=== PATIENT | female | born 1970 | race African-American/Black ===

== ENCOUNTER 2019-06-18 08:43 | Outpatient (CLI) | payer OTHER, SELFPAY ==
--- NOTE | ~2019-06-18 | MM_ITS ---
EXAMINATION: MM screening [facility] BI w mara HISTORY: Screening mammogram TECHNIQUE: Craniocaudal and mediolateral oblique 3-D tomosynthesis images were obtained and synthetic 2-D images were generated. CAD analysis was submitted and interpreted. COMPARISON: Comparison to multiple prior studies sequentially, with oldest reviewed study dated 09/23. BREAST PARENCHYMAL COMPOSITION: There are scattered areas of fibroglandular density. FINDINGS: There is no evidence of suspicious mass, calcification, or architectural distortion to sugg est malignancy in either breast. There has been no suspicious interval change. IMPRESSION: 1. No mammographic evidence of malignancy. 2. Recommend routine screening mammography in one year. BI-RADS Category 1: Negative Reviewed, dictated and finalized at location A.
== END 2019-06-18 08:44 | disposition home or self-care (01) ==
LOC: ANHIMG 08:45
PROVIDERS: PCP Emergency Medicine; Visit Provider Nurse Practitioner Obstetrics & Gynecology
DX: Z12.31 Encounter for screening mammogram for malignant neoplasm of breast (principal)
CPT/HCPCS: 77063; 77067

== ENCOUNTER 2020-06-20 07:51 | Outpatient (CLI) | payer OTHER, SELFPAY ==
--- NOTE | ~2020-06-20 | MM_ITS ---
EXAMINATION: MM screening [facility] BI w mara HISTORY: Screening mammogram TECHNIQUE: Craniocaudal and mediolateral oblique 3-D tomosynthesis images were obtained and synthetic 2-D images were generated. CAD analysis was submitted and interpreted. COMPARISON: 06/18/2019, 05/13/2018 04/22/2017 BREAST PARENCHYMAL COMPOSITION: There are scattered areas of fibroglandular density. FINDINGS: There is no evidence of suspicious mass, calcification, or architectural distortion to sugg est malignancy in either breast. There has been no suspicious interval change. IMPRESSION: 1. No mammographic evidence of malignancy. 2. Recommend routine screening mammography in one year. BI-RADS Category 1: Negative Reviewed, dictated and finalized at location A.
== END 2020-06-20 07:52 | disposition home or self-care (01) ==
LOC: ANHIMG 07:54
PROVIDERS: PCP Emergency Medicine; Visit Provider Nurse Practitioner Obstetrics & Gynecology
DX: Z12.31 Encounter for screening mammogram for malignant neoplasm of breast (principal)
CPT/HCPCS: 77063; 77067

== ENCOUNTER 2020-12-15 19:16 | Emergency (ER) | payer OTHER, SELFPAY ==
--- NOTE | ~2020-12-15 | XR_ITS ---
XR shoulder LT min 2V DATE: 12/15/2020 19:41 INDICATION: Fell onto left shoulder one week ago. Can't lift arm. TECHNIQUE: 4 views COMPARISON: None FINDINGS: No fracture or dislocation, periosteal reaction or bone destruction or abnormal soft tissue calcification. There is some superior subluxation of the humeral head which may be due to rotator cu ff tear or atrophy. IMPRESSION: Suspected rotator cuff tear or atrophy. No significant abnormality otherwise Reviewed, dictated and finalized at location A.
[2020-12-15 19:24] VITALS: BP 119/82; PULSE 78; RESP 16; TEMP 36.6; O2SAT 100
--- NOTE | 2020-12-15 20:22 | ED.UPPEXIN ---
HPI - Extremity Injury (Upper) General Chief Complaint: Extremity Injury, Upper Stated Complaint: Left Arm Pain Time Seen by Provider: 12/15/20 19:27 Source: patient and RN notes reviewed Mode of arrival: ambulatory Limitations: no limitations History of Present Illness HPI narrative: Patient presents today complaining of left shoulder injury. She fell 2 weeks ago in the shower with her elbow bent, striking her elbow and upper arm on the edge of the bathtub. She does report some weakness in the left arm with significant decreased range of motion. Denies numbness or tingling in the arm or hand. She is pain-free at rest, which increases significantly to 10/10 with movement. She has been occasionally taking Tylenol with mild relief. Related Data Home Medications Medication Instructions Recorded Confirmed ergocalciferol (vitamin D2) 50 mcg 2,000 unit PO DAILY 01/07/19 12/15/20 (2,000 unit) tablet montelukast 10 mg PO DAILY 12/15/20 12/15/20 Allergies Allergy/AdvReac Type Severity Reaction Status Date / Time peanut Allergy Mild Cough Verified 12/15/20 20:14 SEASONAL ALLERGENS AdvReac Mild Sneezing Uncoded 12/15/20 20:14 Review of Systems Review of Systems: CONSTITUTIONAL: Denies body aches, fever, chills, or sweats. EYES: Denies visual changes, redness, or discharge. ENT: Denies rhinorrhea, congestion, sore throat, or otalgia. CARDIOVASCULAR: Denies chest pain, palpitations, or edema. RESPIRATORY: Denies cough or dyspnea. GASTROINTESTINAL: Denies abdominal pain, nausea, vomiting, or diarrhea. GENITOURINARY: Denies dysuria or hematuria. SKIN: Denies rash, itching, or wounds. MUSCULOSKELETAL: Denies back pain, or myalgia. + Left shoulder injury NEUROLOGIC: Denies headache, numbness, tingling, PSYCH: Denies depression or anxiety. [facility] Surgical History Surgical History H/O tubal ligation 1995 Family History Family History Father Family history of malignant neoplasm, Onset Age: 63 Patient's father is Social History Social History Smoking status: Never smoker Alcohol intake: never Comments At time of signature, I have reviewed and agree with nursing past medical, surgical, social and family history unless otherwise noted. Please see nursing chart for further information. There is no relevant family history pertinent to the presenting complaint Exam Narrative: GENERAL: Well-appearing, well-nourished, and in no acute distress. HEAD: Normocephalic, atraumatic. EYES: EOMI. No redness or drainage. Conjunctivae normal. ENT: Mucous membranes pink and moist. NECK: Normal AROM. CHEST: No respiratory distress. EXTREMITIES: Left shoulder: Patient has 20 degree range of motion anteriorly and laterally. No internal or external rotation. Distal sensation intact. Capillary refill normal. Radial pulse normal. Scant tenderness anteriorly and laterally. SKIN: Warm, dry, no rash. Capillary refill normal. Normal skin turgor. NEURO: No focal deficits. Alert and oriented x3. Gait steady. PSYCH: Normal affect. No signs of depression or anxiety. Course Vital Signs Vital signs: Vital Signs Temperature 97.8 F 12/15/20 19:24 Pulse Rate 78 12/15/20 19:24 Respiratory Rate 16 12/15/20 19:24 Blood Pressure 119/82 12/15/20 19:24 Pulse Oximetry 100 12/15/20 19:24 Temperature 97.8 F 12/15/20 19:24 Pulse Rate 78 12/15/20 19:24 Respiratory Rate 16 12/15/20 19:24 Blood Pressure 119/82 12/15/20 19:24 Pulse Oximetry 100 12/15/20 19:24 Reviewed. Pt has been instructed to follow up with her PCP regarding her elevated blood pressure today. MDM - Extremity Injury (Upper) Differential Diagnosis Differential diagnosis: Likely other (Humerus fracture, rotator cuff tear, shoulder strain) Imag
== END 2020-12-15 20:31 | disposition home or self-care (01) ==
PROVIDERS: Emergency Provider Nurse Practitioner; PCP Emergency Medicine
DX: S49.92XA Unspecified injury of left shoulder and upper arm, initial encounter (principal); W18.2XXA Fall in (into) shower or empty bathtub, initial encounter
CPT/HCPCS: 73030; 99213; A4565; G0463

== ENCOUNTER 2021-06-23 07:52 | Outpatient (CLI) | payer OTHER, SELFPAY ==
--- NOTE | ~2021-06-23 | MM_ITS ---
EXAMINATION: MM screening [facility] w mara HISTORY: Screening TECHNIQUE: Craniocaudal and mediolateral oblique 3-D tomosynthesis images were obtained and synthetic 2-D images were generated. CAD analysis was submitted and interpreted. COMPARISON: Comparison to multiple prior studies sequentially, with oldest reviewed study dated 06/23. BREAST PARENCHYMAL COMPOSITION: There are scattered areas of fibroglandular density. FINDINGS: There is no evidence of suspicious mass, calcification, or architectural distortion to sugg est malignancy in either breast. There has been no suspicious interval change. IMPRESSION: 1. No mammographic evidence of malignancy. 2. Recommend routine screening mammography in one year. BI-RADS Category 1: Negative Reviewed, dictated and finalized at location A.
== END 2021-06-23 07:53 | disposition home or self-care (01) ==
PROVIDERS: PCP Emergency Medicine; Visit Provider Nurse Practitioner Obstetrics & Gynecology
DX: Z12.31 Encounter for screening mammogram for malignant neoplasm of breast (principal)
CPT/HCPCS: 77063; 77067

== ENCOUNTER 2021-06-29 08:37 | Outpatient (CLI) | payer OTHER, SELFPAY ==
--- NOTE | ~2021-06-29 | CT_ITS ---
EXAMINATION: CT sinus wo con DATE: 06/29/2021 08:59 INDICATION: Chronic sinusitis TECHNIQUE: Computed tomography (CT) of the paranasal sinuses was performed without intravenous contra st. The dose-length product was 355.01 mGy-cm. Automated exposure control and iterative reconstructio n technique were employed. COMPARISON: CT dated 12/10/2016 FINDINGS: There is no significant mucosal thickening. No air-fluid levels. Leftward nasal septal nakul ation. Ostiomeatal units are patent. No mucoperiosteal reaction. Mastoids are pneumatized. IMPRESSION: 1. No significant paranasal sinus disease. Reviewed, dictated and finalized at location B.
== END 2021-06-29 08:38 | disposition home or self-care (01) ==
LOC: ANHIMG 08:38
PROVIDERS: PCP Emergency Medicine; Visit Provider Otolaryngology
DX: J32.9 Chronic sinusitis, unspecified (principal)
CPT/HCPCS: 70486

== ENCOUNTER 2021-07-27 16:09 | Outpatient (CLI) | payer OTHER, SELFPAY ==
--- NOTE | ~2021-07-27 | XR_ITS ---
XR chest 2V DATE: 07/27/2021 16:36 INDICATION: Cough, dictated and sputum production TECHNIQUE: PA and lateral views COMPARISON: 09/16/2018 2 view chest FINDINGS: Normal heart size. No hilar or mediastinal enlargement. Calcified azygous nodes, consistent with old pulmonary granulomatous disease. No pulmonary infiltrate or consolidation, pleural effusion or pulmonary vascular congestion or pneumothorax is detected. IMPRESSION: No active cardiopulmonary disease Reviewed, dictated and finalized at location A.
== END 2021-07-27 16:10 | disposition home or self-care (01) ==
PROVIDERS: PCP Emergency Medicine; Visit Provider Emergency Medicine
DX: R05.9 Cough, unspecified (principal)
CPT/HCPCS: 71046

== ENCOUNTER 2021-09-09 07:49 | Outpatient (CLI) | payer OTHER, SELFPAY ==
--- NOTE | ~2021-09-09 | MR_ITS ---
EXAMINATION: MR shoulder LT wo con DATE: 09/09/2021 08:40 INDICATION: Left shoulder pain. TECHNIQUE: Magnetic resonance imaging (MRI) of the left shoulder was performed without intravenous co ntrast. Sequences included axial PD-weighted FS FSE, coronal oblique PD-weighted FS FSE and T2-weight ed FS FSE, and sagittal oblique T2-weighted FS FSE and T1-weighted FSE. COMPARISON: None. FINDINGS: Coracoacromial arch: The acromion undersurface is curved in morphology (type II). There is a preacromial os acromiale. The re is mild acromioclavicular joint osteoarthritis. There is moderate subacromial/subdeltoid bursitis. Rotator cuff: There is a full-thickness tear of supraspinatus tendon measuring 11 mm anterior to posterior by 2.6 c m proximal to distal. There is severe distal infraspinatus tendinopathy. Teres minor tendon is normal . Subscapularis tendon is normal. There is mild fatty atrophy of supraspinatus and infraspinatus musc le bellies. Biceps tendon and glenoid labrum: Biceps tendon is in bicipital groove. There is moderate intra-articular biceps tendinopathy. There is degenerative tearing of posterior glenoid labrum. Fluid: There is a moderate-sized glenohumeral joint effusion. Bones/cartilage: There is partial-thickness cartilage loss of glenoid and humeral head. IMPRESSION: 1. Full-thickness rotator cuff tear. 2. Mild glenohumeral joint chondrosis. 3. Moderate-sized glenohumeral joint effusion and moderate subacromial/subdeltoid bursitis. 4. Moderate intra-articular biceps tendinopathy. 5. Mild acromioclavicular joint osteoarthritis. Reviewed, dictated and finalized at location A. IMPRESSION: 1. Full-thickness rotator cuff tear. 2. Mild glenohumeral joint chondrosis. 3. Moderate-sized glenohumeral joint effusion and moderate subacromial/subdelto id bursitis. 4. Moderate intra-articular biceps tendinopathy. 5. Mild acromioclavicular joint osteoarthritis.
== END 2021-09-09 07:50 | disposition home or self-care (01) ==
PROVIDERS: PCP Emergency Medicine; Visit Provider Nurse Practitioner
DX: M25.512 Pain in left shoulder (principal); M75.122 Complete rotator cuff tear or rupture of left shoulder, not specified as traumatic; M25.412 Effusion, left shoulder; M75.52 Bursitis of left shoulder; M75.22 Bicipital tendinitis, left shoulder; M19.012 Primary osteoarthritis, left shoulder
CPT/HCPCS: 73221

== ENCOUNTER 2021-12-25 19:45 | Emergency (ER) | payer OTHER, SELFPAY ==
[2021-12-25 19:55] VITALS: BP 105/64; PULSE 84; RESP 16; TEMP 36.7; O2SAT 100
--- NOTE | 2021-12-25 20:24 | ED.URI ---
HPI - URI/Sore Throat General Chief Complaint: Upper Respiratory Infection Stated Complaint: Sore Throat Time Seen by Provider: 12/25/21 20:30 Source: patient and RN notes reviewed Mode of arrival: ambulatory Limitations: no limitations History of Present Illness HPI Narrative: 51-year-old female presents concern for brown colored nasal drainage with specks of red. She reports chronic sinus problems, reports she has noticed discolored drainage for the last 2 days. She denies cough, chest pain, shortness of breath, fever, chills, body aches, sweats. She denies any [id number] intervention. MD elicited complaint: nasal congestion Related Data Allergies Allergy/AdvReac Type Severity Reaction Status Date / Time peanut Allergy Mild Cough Verified 12/25/21 20:03 Review of Systems Review of Systems: CONSTITUTIONAL: Denies malaise, chills, sweats, or fever. EYES: Denies visual changes, redness, or discharge. ENT: Reports rhinorrhea, congestion, sinus pain. Denies otalgia and sore throat. CARDIOVASCULAR: Denies chest pain, palpitations, or edema. RESPIRATORY: Denies cough. Denies dyspnea. GASTROINTESTINAL: Denies abdominal pain, nausea, vomiting, diarrhea SKIN: Denies rash or itching. MUSCULOSKELETAL: Denies myalgia. NEUROLOGIC: Denies headache. All systems reviewed & are unremarkable except as noted in HPI and below PMFSH Past Medical History Medical History (Updated 12/25/21 @ 20:37 by Eli Solis NP) Left rotator cuff tear Left shoulder pain Surgical History Surgical History H/O tubal ligation 1995 Family History Family History Father Family history of malignant neoplasm, Onset Age: 63 Patient's father is Social History Social History Smoking status: Never smoker Alcohol intake: never Gender identity (if verbalized by the patient): Female Comments At time of signature, agree with nursing past medical, surgical, social and family history. There is no relevant family history pertinent to the presenting complaint Exam Narrative: GENERAL: Well-appearing, well-nourished, and in no acute distress. HEAD: Normocephalic EYES: PERRLA, conjunctivae clear ENT: Nares clear, turbinates edematous and erythematous. Mucous membranes moist. TM pearly white with dull light reflex bilaterally; no tragal tenderness. Oropharynx not erythematous without lesions. Tonsils not enlarged and without exudate, no drooling, no hoarseness, no trismus, uvula midline. NECK: Supple. No lymphadenopathy CHEST: Clear to auscultation, breath sounds equal. No wheezing, rhonchi, rales, or stridor. No respiratory distress, speaks in full sentences. HEART: Regular rate and rhythm. No murmur heard. SKIN: Warm, dry, no rash. NEURO: Alert and oriented x3. PSYCH: Normal mood and affect Course Course Emergency Course: Patient is aware of diagnosis, understands and agrees to treatment plan. Anticipatory guidance given. Patient agrees to follow-up as directed and is aware of reasons to seek care at the emergency department. Portions of this record may have been created with voice recognition software Level of Care: Express Care Visit Vital Signs Vital signs: Vital Signs Temperature 98.1 F 12/25/21 19:55 Pulse Rate 84 12/25/21 19:55 Respiratory Rate 16 12/25/21 19:55 Blood Pressure 105/64 12/25/21 19:55 Pulse Oximetry 100 12/25/21 19:55 Oxygen Delivery Room Air 12/25/21 19:55 Temperature 98.1 F 12/25/21 19:55 Pulse Rate 84 12/25/21 19:55 Respiratory Rate 16 12/25/21 19:55 Blood Pressure 105/64 12/25/21 19:55 Pulse Oximetry 100 12/25/21 19:55 Oxygen Delivery Room Air 12/25/21 19:55 Reviewed. MDM - URI/Sore Throat MDM Narrative Medical decision making narrative: Differential diagnosis considered: Fong v
== END 2021-12-25 20:44 | disposition home or self-care (01) ==
PROVIDERS: Emergency Provider Nurse Practitioner; PCP Emergency Medicine
DX: J32.9 Chronic sinusitis, unspecified (principal)
CPT/HCPCS: 99213; G0463

== ENCOUNTER 2022-07-17 03:55 | Emergency (ER) | payer OTHER, SELFPAY ==
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
--- NOTE | ~2022-07-17 | XR_ITS ---
Right Shoulder Technique: AP and scapular Y views were obtained. Clinical History: Pain Findings: No fracture or dislocation is seen. Osseous alignment is anatomic. The glenohumeral and acr omioclavicular joint spaces are preserved. Soft tissues are unremarkable. Impression: Unremarkable right shoulder radiographs. Reviewed, dictated and finalized at [facility]. Impression: Unremarkable right shoulder radiographs.
--- NOTE | ~2022-07-17 | XR_ITS ---
Right Humerus Technique: AP and lateral views were obtained. Clinical History: Pain Findings: No fracture or dislocation is seen. Osseous alignment is anatomic. Visualized joint spaces are grossly preserved. Soft tissues are unremarkable. Impression: Unremarkable examination. No fracture or dislocation. Reviewed, dictated and finalized at location . Impression: Unremarkable examination. No fracture or dislocation.
--- NOTE | ~2022-07-17 | CT_ITS ---
Noncontrast CT scan of the cervical spine Technique: Multiple contiguous axial [address] images of the cervical spine were obtained and rec onstructed in 2D sagittal and coronal planes on the acquisition scanner. Dose reduction technique was used on this scan by utilizing automated exposure control, adjustment of the mA and/or kV according to patient size. Clinical History: Pain Findings: No fractures or dislocations. There are mild degenerative disc changes in the cervical spi ne. There are scattered minimal facet joint degenerative changes. No definite spinal canal stenosis o r neural foraminal narrowing. No prevertebral soft tissue swelling. Impression: No fracture or subluxation of the cervical spine. Reviewed, dictated and finalized at location . Impression: No fracture or subluxation of the cervical spine.
[2022-07-17 03:59] VITALS: BP 115/82; PULSE 85; RESP 14; TEMP 36.4; O2SAT 92
[2022-07-17 04:07] VITALS: BP 115/82; PULSE 85; RESP 15; TEMP 36.4; O2SAT 98
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
== END 2022-07-17 06:34 | disposition home or self-care (01) ==
PROVIDERS: Emergency Provider Preventive Medicine Aerospace Medicine; PCP Emergency Medicine
DX: S49.91XA Unspecified injury of right shoulder and upper arm, initial encounter (principal); S06.0XAA Concussion with loss of consciousness status unknown, initial encounter; V40.6XXA Car passenger injured in collision with pedestrian or animal in traffic accident, initial encounter
CPT/HCPCS: 70450; 72125; 73030; 73060; 99284; L0140

== ENCOUNTER 2022-07-23 07:56 | Outpatient (CLI) | payer OTHER, SELFPAY ==
--- NOTE | ~2022-07-23 | MM_ITS ---
EXAMINATION: MM screening [facility] BI w mara HISTORY: Screening mammogram TECHNIQUE: Craniocaudal and mediolateral oblique 3-D tomosynthesis images were obtained and synthetic 2-D images were generated. CAD analysis was submitted and interpreted. COMPARISON: 06/23/2021, 06/20/2020, 06/18/2019 bilateral screening mammogram examinations BREAST PARENCHYMAL COMPOSITION: There are scattered areas of fibroglandular density. FINDINGS: There is no evidence of suspicious mass, calcification, or architectural distortion to sugg est malignancy in either breast. There has been no suspicious interval change. IMPRESSION: 1. No mammographic evidence of malignancy. 2. Recommend routine screening mammography in one year. BI-RADS Category 1: Negative Reviewed, dictated and finalized at location A.
== END 2022-07-23 07:57 | disposition home or self-care (01) ==
LOC: ANHIMG 07:59
PROVIDERS: PCP Emergency Medicine; Visit Provider Nurse Practitioner Obstetrics & Gynecology
DX: Z12.31 Encounter for screening mammogram for malignant neoplasm of breast (principal)
CPT/HCPCS: 77063; 77067

== ENCOUNTER 2023-03-08 09:26 | Outpatient (CLI) | payer OTHER, SELFPAY ==
--- NOTE | ~2023-03-08 | DEXA_ITS ---
Bone Density Report Name: DANELLE GARDNER Age: 53 Sex: Female Ethnicity: Black Date of : 1970 Indication: postmenopausal; screening for osteoporosis; Referring Provider: DIEGO LIMON Study: Bone densitometry was performed. Exam Date: March 08, 2023 Accession number: [id number] Bone Density: Region BMD T-score Z-score Classification AP Spine(L1-L4) 0.987 -0.5 -0.3 Normal Femoral Neck (Left) 1.153 2.7 2.2 Normal Total Hip (Left) 1.137 1.6 1.2 Normal Femoral Neck (Right) 1.147 2.7 2.2 Normal Total Hip (Right) 1.108 1.4 1.0 Normal Total Hip Mean 1.123 1.5 1.1 Normal World Health Organization criteria for BMD impression classify patients as: Normal (T-score at or above -1.0), Osteopenia (T-score between -1.0 and -2.5), or Osteoporosis (T-score at or below -2.5). 10-year Fracture Risk: FRAX not reported because: All T-scores for Spine Total, Hip Total, Femoral Neck at or above -1.0 Clinical Information Provided by Patient: Patient maximum height was 67.0 Menopause Age: 48 No regular weight bearing exercise Does not regularly consume dairy products Drinks caffeinated beverages Onset of menses at age 11 Number of children 2 Impression: The patient has normal bone mass. Discussion: BONE DENSITY IS ABOVE THE MINIMUM DESIRABLE LEVEL AT ALL SKELETAL SITES TESTED. This patient?s bone mineral density is above the minimum desirable level (T-score -1.0 or better) at all sites measured. The patient should follow a healthful lifestyle (good nutrition with adequate calcium and vitamin D, and appropriate weight-bearing exercise). Follow-Up: Consider repeating this study in 5 years or sooner if there is some new clinical indication. Reported by: [facility] on 03/08/2023 9:50:00 AM. Reviewed, dictated and finalized at location A. [facility]
== END 2023-03-08 09:27 | disposition home or self-care (01) ==
LOC: ANHIMG 09:28
PROVIDERS: PCP Emergency Medicine; Visit Provider Emergency Medicine
DX: Z78.0 Asymptomatic menopausal state (principal)
CPT/HCPCS: 77080

== ENCOUNTER 2023-04-22 09:28 | Outpatient (CLI) | payer OTHER, SELFPAY ==
--- NOTE | ~2023-04-22 | XR_ITS ---
EXAMINATION: XR UGIAC wo kub DATE: 04/22/2023 10:10 INDICATION: Nausea after eating. Reflux. TECHNIQUE: The patient drank thick barium, gas-producing crystals, and thin barium. Fluoroscopy of th e esophagus, stomach, and proximal small bowel was performed. Fluoroscopy exposure time was 0.7 minut es. The total number of images was 461. Total dose-area product was 2.065 Gy-cm^2. COMPARISON: None. FINDINGS: There is no mass or stricture of the esophagus. Esophageal motility is normal. There is no hiatal hernia. There was no gastroesophageal reflux with provocative maneuvers. The stomach and proxi mal small bowel show normal folding patterns. IMPRESSION: 1. Normal upper gastrointestinal series. Reviewed, dictated and finalized at location A.
== END 2023-04-22 09:29 | disposition home or self-care (01) ==
PROVIDERS: PCP Emergency Medicine; Visit Provider Emergency Medicine
DX: K21.9 Gastro-esophageal reflux disease without esophagitis (principal)
CPT/HCPCS: 74246

== ENCOUNTER 2023-04-23 09:36 | Outpatient (CLI) | payer OTHER, SELFPAY ==
--- NOTE | ~2023-04-23 | NM_ITS ---
EXAM: NM gastric emptying study DATE: 04/23/2023 14:07 INDICATION: Postprandial nausea TECHNIQUE: A gastric emptying study was performed using the methodology of Urvashi PENN, et al. J Nucl Med 2007; 48:568-572. The patient was given a meal consisting of 2 scrambled eggs labeled with 0.951 mCi Tc-99m sulfur colloid, 2 slices of toast, two packages of jam, and approximately 120 mL of water . Simultaneous anterior and posterior 1-min images of the abdomen were obtained with the patient supi ne at multiple time points over a total period of 4 hours. The geometric mean of anterior and posteri or views was determined, and the percentage retention was calculated for each time point. COMPARISON: None. FINDINGS: Gastric retention of the radiotracer-labeled meal was 49%, 17%, and 2% at the 1-hour, 2-hour, and 4-h our time points, respectively. With this technique, apparent rapid gastric emptying is suggested by < 30% gastric retention at 1 hour. Delayed gastric emptying is defined by gastric retention of >90% at 1 hour, >60% retention at 2 hours, or >10% retention at 4 hours. IMPRESSION: 1. Normal gastric emptying. Reviewed, dictated and finalized at location L. IMPRESSION: 1. Normal gastric emptying.
== END 2023-04-23 09:37 | disposition home or self-care (01) ==
LOC: ANHIMG 09:39
PROVIDERS: PCP Emergency Medicine; Visit Provider Emergency Medicine
DX: R11.0 Nausea (principal)
CPT/HCPCS: 78264; A9541

== ENCOUNTER 2023-05-27 11:03 | Emergency (ER) | payer OTHER, SELFPAY ==
[2023-05-27 11:10] VITALS: BP 117/68; PULSE 89; RESP 16; TEMP 36.6; O2SAT 99
--- NOTE | 2023-05-27 11:16 | ED.DENTAL ---
HPI - Dental/Oral General Chief complaint: Dental/Oral Stated complaint: right side of face swollen, sharp pain Time Seen by Provider: 05/27/23 11:07 Source: patient Mode of arrival: ambulatory Limitations: no limitations History of Present Illness HPI Narrative: Wu is a 53-year-old female patient presenting to the clinic today with complaints of pain to the right cervical lymph nodes with sharp jolts of pain radiating up into the forehead. She reports that she bit her tongue 2 weeks ago and 2 days ago she developed swelling to the right anterior cervical lymph node. Today she started experience some sharp pain shooting up into the right side of her forehead. She denies pain worsening when eating/chewing. No known injury other than biting her tongue. She denies of any dental pain. Denies sore throat. Denies any recent weight loss. States that she did take some Tylenol and that helped improve her pain. Denies any known fever or chills. Denies visual changes. Related Data Home Medications Medication Instructions Recorded Confirmed No Home Medications 05/27/23 05/27/23 Allergies Allergy/AdvReac Type Severity Reaction Status Date / Time peanut Allergy Mild Cough Verified 05/27/23 11:19 Review of Systems Review of Systems: Pertinent positives per HPI. Patient denies any fever, chills, rash,visual changes, dizziness, cough, runny nose, sore throat, shortness of breath, chest pain, palpitations, nausea, vomiting, diarrhea, constipation, abdominal pain, or any urinary issues. [facility] Past Medical History Medical History Left rotator cuff tear Left shoulder pain Surgical History Surgical History H/O tubal ligation 1995 Family History Family History Father Family history of malignant neoplasm, Onset Age: 63 Patient's father is Social History Social History Smoking status: Never smoker Alcohol intake: never Gender identity (if verbalized by the patient): Female Comments At the time of my signature, I reviewed and agree with the nursing past medical, surgical, social, and family history. There is no relevant family history pertinent to the patient complaint. Exam Narrative: General: Well-developed, well nourished, in no apparent distress Head: Normocephalic, atraumatic Eyes: Pupils equally round and reactive to light bilaterally, EOM intact, sclera and conjunctive clear, no discharge, lids normal Ears: TMs intact and clear, ear canals clear, no drainage, grossly hearing normal. Nose: Nares patent, no discharge, no inflammation, no sinus tenderness. Mouth: Oropharynx without lesions or masses, good dentition, MMM. Small abrasion to the right proximal lateral tongue without redness or swelling, no tenderness or crepitus over the TMJ joint with opening/closing, no tenderness to palpation over the right temporal lobe Neck: Supple, trachea midline, no enlargement of anterior or posterior cervical nodes, tender to palpation over the right anterior cervical node, no thyroid masses or goiter palpable. Cardio: Regular rate and rhythm, s1 and s2 normal, no murmur appreciated. Resp: Clear to auscultation bilaterally anteriorly and posteriorly, no rhonchi, rales, wheezing or rubs Course Course Emergency Course: Portions of this record may have been created with voice recognition software. Level of Care: Express Care Visit Vital Signs Vital signs: Vital Signs Temperature 36.6 C 05/27/23 11:10 Pulse Rate 89 05/27/23 11:10 Respiratory Rate 16 05/27/23 11:10 Blood Pressure 117/68 05/27/23 11:10 Pulse Oximetry 99 05/27/23 11:10 Oxygen Delivery Room Air 05/27/23 11:10 Temperature 36.6 C 05/27/23 11:10 Pulse Rate
== END 2023-05-27 12:00 | disposition home or self-care (01) ==
PROVIDERS: Emergency Provider Nurse Practitioner Family; PCP Emergency Medicine
DX: R59.0 Localized enlarged lymph nodes (principal)
CPT/HCPCS: 87081; 87880; 99213; G0463

== ENCOUNTER 2023-05-27 12:32 | Emergency (ER) | payer OTHER, SELFPAY ==
[2023-05-27 13:09] VITALS: BP 125/70; PULSE 89; RESP 16; TEMP 36.5; O2SAT 99
== END 2023-05-27 16:15 | disposition left against medical advice (07) ==
PROVIDERS: PCP Emergency Medicine
DX: R51.9 Headache, unspecified (principal)
CPT/HCPCS: 99199

== ENCOUNTER 2023-06-19 08:17 | Outpatient (CLI) | payer OTHER, SELFPAY ==
--- NOTE | ~2023-06-19 | US_ITS ---
EXAMINATION: US abdomen complete DATE: 06/19/2023 10:08 INDICATION: Nausea without vomiting. TECHNIQUE: Multiple grayscale and Doppler ultrasound images of the abdomen were obtained. COMPARISON: Ultrasound 06/27/2017 FINDINGS: The visualized portions of the head and body of the pancreas are normal. The liver demonstr ates diffuse steatosis. There is normal flow in main portal vein. The gallbladder is normal in size. No gallstones or gallbladder wall thickening. There is no sonographic Chi's sign. The common duct is normal and measures 2 mm. The kidneys are normal in size. The inferior vena cava is normal. Abdomi nal aorta is normal in caliber. The spleen is not visualized. IMPRESSION: 1. Diffuse hepatic steatosis. 2. Spleen not visualized. Reviewed, dictated and finalized at location A.
== END 2023-06-19 08:18 | disposition home or self-care (01) ==
PROVIDERS: PCP Emergency Medicine; Visit Provider Emergency Medicine
DX: R11.0 Nausea (principal); K76.0 Fatty (change of) liver, not elsewhere classified
CPT/HCPCS: 76700

== ENCOUNTER 2023-06-21 08:35 | Outpatient (CLI) | payer OTHER, SELFPAY ==
--- NOTE | ~2023-06-21 | MM_ITS ---
EXAMINATION: MM screening adelina BI w mara HISTORY: Screening mammogram TECHNIQUE: Craniocaudal and mediolateral oblique 3-D tomosynthesis images were obtained and synthetic 2-D images were generated. CAD analysis was submitted and interpreted. COMPARISON: 07/23/2022, 06/23/2021 bilateral screening mammogram examinations BREAST PARENCHYMAL COMPOSITION: The breasts are almost entirely fatty. FINDINGS: There is no evidence of suspicious mass, calcification, or architectural distortion to sugg est malignancy in either breast. There has been no suspicious interval change. IMPRESSION: 1. No mammographic evidence of malignancy. 2. Recommend routine screening mammography in one year. BI-RADS Category 1: Negative Reviewed, dictated and finalized at location B.
== END 2023-06-21 08:36 | disposition home or self-care (01) ==
LOC: ANHIMG 08:41
PROVIDERS: PCP Emergency Medicine; Visit Provider Nurse Practitioner Obstetrics & Gynecology
DX: Z12.31 Encounter for screening mammogram for malignant neoplasm of breast (principal)
CPT/HCPCS: 77063; 77067

== ENCOUNTER 2024-07-23 12:25 | Outpatient (CLI) | payer OTHER, SELFPAY ==
--- NOTE | ~2024-07-23 | MM_ITS ---
EXAMINATION: MM screening adelina BI w mara HISTORY: Screening TECHNIQUE: Craniocaudal and mediolateral oblique 3-D tomosynthesis images were obtained and synthetic 2-D images were generated. CAD analysis was submitted and interpreted. COMPARISON: Comparison to multiple prior studies sequentially, with oldest reviewed study dated 03/2018. BREAST PARENCHYMAL COMPOSITION: Not dense: There are scattered areas of fibroglandular density. FINDINGS: There is no evidence of suspicious mass, calcification, or architectural distortion to sugg est malignancy in either breast. There has been no suspicious interval change. IMPRESSION: 1. No mammographic evidence of malignancy. 2. Recommend routine screening mammography in one year. BI-RADS Category 1: Negative Reviewed, dictated and finalized at location B.
--- OUTSIDE RECORDS SUMMARY | 2024-07-23 12:59 | XMS_ITS | Continuity of Care Document ---
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 environmental allergy, including dog and cat. Pt started singulair and flonase and her above symptoms completely resolved. Pt has not done chest x ray yet physical Pt needs annual physical. pt c/o mild productive cough with clear and brown and greenish phlegm on and off for one month Pt denies any fever or sob. Pt does have mild sinus allergy symptoms. Pt feels a ticklish feeling around her throat which triggers her cough Pt denies any postnasal drainage. Pt was evaluated by ENT and had sinus CT which was benign per patient. Pt states that her sinus and throat were all normal by ENT. Pt denies any chest pain. Pt denies any loss of taste and smell. Pt denies any sneezing or sinus congestion Pt has been taking Micaela but not helping. Pt states that ENT recommended implementation specialist. Pt denies any other complaints. Pt denies any sore throat shoulder pain1 Pt slipped and f ell in the shower about 3 weeks ago and she hit her outstretched left elbow which was in flexed position on the edge of the tub. Pt denies any head injury. her left shoulder was over extended during the process and she felt acute left shoulder pain right after the fall Pt denies any left shoulder swelling, redness, or warmth Pt denies any radiation of pain to neck. Pt notices mild radiation pain down to left hand .Pt has 3/10 left shoulder pain but goes up 10/10 when she tries to raise her left shoulder. Pt went to urgent care and had x ray done which suggested ? rotator cuff tear or atrophy without any bony injury Pt has been taking NSAID for pain. dysphagia1 Pt states that s he notices occasional choking and coughing spells when she swallows during last two weeks. Pt notices most time it involves liquid but she also noticed some solid food as well Pt denies any sore throat Pt notices very mild sinus and postnasal drainage as well. Pt states that she feels that her throat closes when she try to swallow and she has to gasp for air as well. Pt also notice mild GERD during last two weeks. Pt denies any GERD in the past .Pt denies any stomach pain, nausea, vomiting. Pt feels some FB around throat area .Pt states that lying flat at night tends to make the reflux worse Pt denies any nausea, vomiting Pt denies any hoarseness. pt denies any weight loss leg pain1 Pt c/o pain and stiffness from right hip to lateral thigh down to right lateral knee for several months, especially when she tries to bend her right knee and flex right lower leg. Pt denies any knee pain ,Pt denies any calf pain Pt denies any right leg and foot numbness or tingling ,Pt denies any recent travel or bedrest Pt denies any back pain or sciatica pt denies any loss of bladder control. Pt denies any claudication. Pt denies any chest pain or sob. Pt denies any injury protein Pt had history o f elevated total serum protein. Repeat total protein and SPEP and UPEPE is benign hot flash1 Pt has been havi ng hot flashes frequently during last several months. 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 Pt feels slightly constipated for two weeks. Pt denies any blood ins tool. Pt notices pain with BMP only pt denies ay bleeding sinus1 pt c/o sinus con gestion, purulent sinus drainage for one week Pt c/o sore throat and mid cough Pt denies any fever, chill headache D Pt has low D. Pt has bone density scheduled soon. Pt denies any fx protein1 Pt has high tota l protein. Pt denies any joint pain vasomotor Pt has been havi ng hot flashes frequently. Pt denies any chest pain or headache Pt denies any vaginal bleeding. Pt had uterine ablation cough1 Pt states that c oughing resolved. Chest x ray normal physical Pt needs annual physical. Pt has mild sinus congestion without drainage. productive coughing on and off for 4 weeks Pt denies any sore throat pt denies any hemoptysis, sob Pt denies any recent travel or bedrest Pt denies any fever, chill, night sweat Pt denies any sick contact. Pt notices dark color phlegm without any blood. Pt denies any chest pain or sob Pt denies any calf pain Pt denies any other complaints sinus1 Pt c/o sinus con gestion and sinus drainage for one week. pt denies any sore throat or ear pain. Pt tried and failed OTC meds. hearing loss1 Pt c/o right ear hearing loss. Pt had basically normal hearing study. Pt denies any ear pain or drainage ulcer1 pt has gastric u lcer Pt denies any abdominal pain pt denies any GERD Pt is off PPI Pt supposes to follow up with Dr. kearns now but she was told that they no longer take monae UTI1 Pt recently went to job interview and she had UA test done which showed leukocyte per patient. She denies any UTI symptoms Pt wants to make sure she is ok pt denies any flank pain hearing loss1 pt c/o right ear hearing loss. Pt denies any right ear pain pt states that left side is ok Pt called Dr. dobson who told her they don't take her insurance. Pt called and set up a hearing study at [facility] and needs referral PHysical Pt needs annual physical Pt c/o right leg swelling for 3 years. Pt notices mild swelling and pain right lateral foot for 3 years Pt is concerned about DVT Pt has some varicose veins on the back of leg. Pt denies any recent travel or bedrest. Pt denies any sob or chest pain. Pt states that she watched you-tube and she thinks that she has DVt. Pt c/o bilateral ear pain and some hearing loss, worse on left side for several months. Pt denies any ear drainage or any sinus symptoms. Pt [place] to see ENT in [place] Pt already has a ENT in mind and just wants referral. Pt c/o mild swelling and pain right lateral midfoot for several months Pt denies any injury. Pt denies any numbness,, Pt has history of duodenal ulcer and she has been off omeprazole and she was told by GI that she adhikari snot need anymore PPI or repeat EGD. Pt denies any GI symptoms. Pt denies any other complaints duo ulcer1 Pt has duodenal ulcer and gastritis. Pt is taking omeprazole now Pt states that she has been constipated for 2 weeks Pt was started on amitiza which helps slighlty. renal cyst1 Pt has renal cys t which is benign on the ultrasound back pain1 Pt has constant and persistent low back pain for two years, which is worse lately. Pt c/o right sciatica without leg numbness. 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 Pt states that she has 10/10 low back pain daily. Pt states that riding in car or sitting hurts worse Pt denies any loss of bladder control. pt recenlty went to ER and she got toradol and flexeril which did not help ulcer duodenal ulcer1 Pt had eGD done back in February and she was found to have duodenal ulcer. Pt told me she had normal EGD Pt is not taking any PPIs Pt denie any abd pain Pt has daily GERD symptoms. Pt denies any nauea, vomiting. Pt denies any dark stool renal cyst Pt has renal cys t. Pt states that she does not have any order for renal cyst. Pt denies any flank pain sius allergy1 Pt has sinus all ergy chronically Pt doing ok with flonase. Pt denies any sinus pain or drainage Physical Pt needs annual physical Pt c/o sinus congsetion and some purulent phlegm and mucous with coughing. Pt had symptoms for two weeks. Pt denies any sore throat or ear pain. Pt has mild cough. Pt denies any chest pain or SOB. Pt denies any headache. Pt had CT done January, which showed hiatal hernia, renal cyst and fatty liver. Pt denies any abd pain. Pt rarely has GERd. Pt told me she had EGD done by Dr. Kearns 6 months ago after the CT scan which was benign and she was told to take OTC meds only. Pt denies any abd pain. Pt denies any other complaints Instructions Date Instruction Additional Infor gaurav Weight management Related to Flu shing Increase physical activity Relat ed to [place] Special diet education Related t o Body mass index (BMI) 30.0-30.9, adult Special diet education Related t o Body mass index (BMI) 29.0-29.9, adult Increase physical activity Relat ed to Vitamin D deficiency, unspecified Weight management Related to Vit britt D deficiency, unspecified Special diet education Related t o Body mass index (BMI) 28.0-28.9, adult Perform monthly self breast examinations. Related to Encntr for general adult medical exam w/o abnormal findings Increase activity. Related to En cntr for general adult medical exam w/o abnormal findings Special diet education Related t o Body mass index (BMI) 28.0-28.9, adult Weight management Related to Uns pecified hearing loss, right ear Special diet education Related t o Body mass index (BMI) 27.0-27.9, adult Weight management Related to Uri nary tract infection Special diet education Related t o Body mass index (BMI) 27.0-27.9, adult Weight management Related to Enc ounter for general adult medical exam w abnormal findings Prescribed Activity and Exercise Education Related to Dietary Surveillance and Counseling Prescribed Diet Educ ation/Lifestyle Education Regarding Diet Related to Dietary Surveillance and Counseling Increase physical activity Relat ed to Acute duodenal ulcer without hemorrhage or perforation Weight management Related to Acu te duodenal ulcer without hemorrhage or perforation Prescribed Activity and Exercise Education Related to Dietary Surveillance and Counseling Prescribed Diet Educ ation/Lifestyle Education Regarding Diet Related to Dietary Surveillance and Counseling Assessments Type Assessment Date assessment Acute vaginal candidiasis assessment Paresthesia of skin assessment Acute conjunctivitis of left eye Mental Status Date Cognitive Assessment Orientation - [place] ed to time, place, person, situation.
--- OUTSIDE RECORDS SUMMARY | 2024-07-23 12:59 | XMS_ITS | Clinical Summary ---
Author Organization [facility] Address [address] [place] [address] Phone Care Team Providers Care Follow Up Specialist Name Role Phone Provider, Unknown Primary Care Provider Unavaila ble Social History Tobacco Use Types Packs/Day Years Used Date Smoking Tobacco: Never Assessed Comments Unknown Sex and Gender Information Value Date Recorded Sex Assigned at Not on file Legal Sex Female 10:57 AM CDT Gender Identity Not on file Sexual Orientation Not on file Plan of Treatment Not on file Care Teams Follow Up Specialist Relationship Specialty Start Date End Date Provider, Unknown UNKNOWN PCP - General 04/27/16
--- OUTSIDE RECORDS SUMMARY | 2024-07-23 12:59 | XMS_ITS | Data Portability ---
Author Organization [place] [facility], Main Office Address [address] [place] [address] Care Team Providers Care Supervisor Type Bar And Segment Name Role Phone DIEGO LIMON Referring Provider [phone] Assessment No assessment recorded. Plan of Treatment Reminders Order Date Submit Date Provider Last Modified By Organization Details Last Modified Time Details Appointments None recorded. Lab None recorded. Referral None recorded. Procedures None recorded. Surgeries submucous resection inferior turbinate (SURG) [address] ([facility] [employer] [facility]), [address] [place], [address], 4 17:20:45 Imaging None recorded. Medication Orders Ciprodex 0.3 %-0.1 % ear drops,suspe nsion 2023 024 [id number], [address] [place], [place], [id number], 4 14:53:44 amoxicillin 875 mg tablet [address] [facility] #[id number], [address] [place], [place], [id number], 4 11:51:43 Flonase Allergy Relief 50 mcg/actuati on nasal spray,suspe nsion 2023 024 [facility] #[id number], [address] [place], [place], [id number], 4 11:42:58 Patient TargetsNo targets recorded. Patient Instructions Encounter Date Encounter Id Patient Instructions Last Modified By Organization Details Last Modified Time 05/09/2023 [id number] audiogram is ordered [email or web address] Not available 05/09/2023 11:33:07 Reason for Referral None Reported. Results Created Date Observation Date Name Description Value Unit Range Abnormal Flag Note LastModifiedBy Organization Detail LastModifiedTime 05/01/19 24 05/01/2023 HEMOG LOBIN /SUNSHINE TOCRI T hemoglobin 13.6 g/dL 12.0-1 5.6 Not Available [facility] (Lab) [address] [place], [address], 05/01/2023 09:02:47 05/01/19 24 05/01/2023 HEMOG LOBIN /SUNSHINE TOCRI T hematocrit 41.6 % 35.7-4 5.7 Not Available [facility] (Lab) [address] [place], [address], 05/01/2023 09:02:47 05/01/19 24 05/01/2023 PLATE LET COUNT platelets 290 x10'3 /uL 150-40 0 Not Available [facility] (Lab) [address] [place], [address], 05/01/2023 09:02:53 05/01/19 24 05/01/2023 POTAS SIUM potassium 4.4 mmol/ L 3.5-5. 1 Not Available [facility] (Lab) [address] [place], [address], 05/01/2023 09:12:05 06/30/19 22 06/29/2021 CT, sinus es, w/o contr ast No observ ation record ed. [id number], [address], 04/11/2022 19:17:37 07/01/19 22 06/29/2021 CT, sinus es, w/o contr ast No observ ation record ed. [id number], [address], 04/11/2022 19:17:37 05/20/19 24 05/20/2023 audio gram + tympa nogra m No observ ation record ed. [email or web address] [facility] [address], [place], [address], 05/22/2023 09:17:05 05/23/19 24 05/23/2023 audio gram + tympa nogra m No observ ation record ed. BARCODE [facility] [address], [place], [address], 05/23/2023 11:12:19 Result Notes None recorded. Problems Name Problem SNOMED Code Status Onset Date Resolution Date Notes Provider Name and Address Organization Details Recorded Time Chronic sinusitis 22544147 Active 2021 Not Available [facility] 3 19:16:42 Impacted cerumen in left ear 3981154112477 101 Active 2023 Daniel Kasper MD [address], [place], [address] , [employer] [facility] [employer] [facility] 4 11:40:56 Acute sinusitis 16390401 Active 2023 Daniel Kasper MD [address], [place], [address] , [employer] [facility] [employer] [facility] 4 11:41:09 Chronic cough 67280718 Active 2023 Daniel Kasper MD [address], [place], [address] , [employer] [facility] 4 17:39:28 Hypertroph y of nasal turbinates 51860483 Active 2023 Daniel Kasper MD [address], [place], [address] , [employer] [facility] 4 12:13:51 Postoperat joe pain 051857822 Active 2023 Daniel Kasper MD [address], [place], [address] , [facility] [employer] [facility] 4 16:28:15 Sensorineu ral hearing loss 90093240 Active 2023 Mae Dillon RN [facility], [facility] [employer] [facility] 4 11:27:41 Otitis externa 8022847 Active 2023 Daniel Kasper MD [address] [facility], [facility] [address], [place], [address] , [facility] [employer] [facility] 4 14:52:38 Notes:Some problems listed i n Document: #[id number] could not be added to this patient's chart. Please review this document and add these problems to the patient's chart manually as needed. Problem Notes None recorded. Procedures Surgical History Date Name Laterality Status Provider Name and Address Organization Details Recorded Time 07/21/19 SEPTOPLASTY (SURG) completed Not Available [facility] 04/11/2022 19:17:36 reduction of nasal turbinate completed Mae Dillon RN [facility] 05/08/2023 09:08:48 SUBMUCOUS RESECTION INFERIOR TURBINATE (SURG) completed Mae Dillon RN [facility] 05/09/2023 11:37:52 Imaging Results None recorded. Procedure Notes None recorded. Medical Equipment None Reported. Allergies Allergen ID Allergen Name Allergen Category Reaction Reaction Severity Criticality Documentation Date Start Date Code Code System Note Provider Name and Address Organization Details Recorded Time 71692 adhesive environme nt,medica tion Not available Not available Not available 04/11/2022 [id number] UNK Not Available [facility] 19:17:34 Medications Name Sig Start Date Stop Date Status Note LastModified by Organization Details LastModified Time Prescriptio n - Change active Not Available Not Available N ot Available cyclobenzap rine 10 mg tablet 12/21 completed Not Available Not Available Not Available amoxicillin 500 mg capsule TK 1 T PO TID 04/22 completed Not Available Not Available Not Available cefuroxime axetil 250 mg tablet TK 1 T PO BID 04/22 completed Not Available Not Available Not Available cetirizine 10 mg tablet TK 1 T PO QD 04/22 completed Not Available Not Available Not Available CombiPatch 0.05 mg-0.14 mg/24 hr transdermal APPLY 1 PATCH TOPICALLY TO THE SKIN 2 TIMES EVERY WEEK 03/20 completed Not Available Not Available Not Available ibuprofen 800 mg tablet TAKE 1 TABLET BY MOUTH EVERY 6 TO 8 HOURS WITH FOOD NEEDED 03/20 completed Not Available Not Available Not Available fluconazole 150 mg tablet TAKE 1 TABLET BY MOUTH 1 TIME active Not Available Not Available No t Available benzonatate 200 mg capsule TAKE 1 CAPSULE BY MOUTH EVERY 6 HOURS 04/22 completed Not Available Not Available Not Available ketotifen 0.025 % (0.035 %) eye drops 04/22 completed Not Available Not Available Not Available hydrocodone 5 mg-acetamin ophen 325 mg tablet TAKE 1 TABLET BY MOUTH EVERY 6 HOURS NEEDED FOR PAIN 06/14 completed Not Available Not Available Not Available meloxicam 15 mg tablet TAKE 1 TABLET BY MOUTH EVERY DAY 04/22 completed Not Available Not Available Not Available Tussin Maximum Strength Cough 15 mg/5 mL oral syrup Take 10 mL every 6 hours by oral route. 2023 active Not Available Not Available Not Avai lable sumatriptan 50 mg tablet TAKE 1 TABLET BY MOUTH AT ONSET OF HEADACHE. MAY REPEAT ONCE IN 2 HOURS . MAX 2 TABLETS /24 HOURS active Not Available Not Available No t Available tramadol 50 mg tablet 12/21 completed Not Available Not Available Not Available amoxicillin 875 mg tablet TAKE 1 TABLET BY MOUTH EVERY 12 HOURS 04/16 completed Not Available Not Available Not Available estradiol 0.025 mg/24 hr weekly transdermal patch APPLY 1 PATCH EXTERNALL Y TO THE SKIN EVERY WEEK 04/22 completed Not Available Not Available Not Available prednisolon e acetate 1 % eye drops,suspe nsion 06/10 completed Not Available Not Available Not Available DOK 100 mg capsule 12/21 completed Not Available Not Available Not Available Naphcon-A 0.025 %-0.3 % eye drops INT 1 GTT INTO OU QID 12/21 completed Not Available Not Available Not Available hydrocodone 7.5 mg-acetamin ophen 325 mg tablet TAKE 1 TABLET BY MOUTH EVERY 4 HOURS NEEDED active Not Available Not Available No t Available lidocaine 5 % topical patch APPLY 1 PATCH TOPICALLY TO THE SKIN EVERY DAY. MAY WEAR UP TO 12 HOURS. NEEDED active Not Available Not Available No t Available polymyxin B sulfate 10,000 unit-trimet hoprim 1 mg/mL eye drops 12/21 completed Not Available Not Available Not Available CombiPatch 0.05 mg-0.25 mg/24 hr transdermal APPLY 1 PATCH TOPICALLY TO THE SKIN 2 TIMES A WEEK 03/20 completed Not Available Not Available Not Available omeprazole 20 mg capsule,del ayed release TAKE 1 CAPSULE BY MOUTH EVERY DAY BEFORE A MEAL active Not Available Not Available No t Available montelukast 10 mg tablet TAKE 1 TABLET BY MOUTH EVERY DAY IN THE EVENING active Not Available Not Available No t Available diclofenac sodium 50 mg tablet,maddie yed release 12/21 completed Not Available Not Available Not Available norethindro ne acetate 5 mg tablet 04/22 completed Not Available Not Available Not Available ergocalcife rol (vitamin D2) 1,250 mcg (50,000 unit) capsule TK 1 C PO Q WK active Not Available Not Available No t Available azelastine 137 mcg (0.1 %) nasal spray USE 1 SPRAY IN EACH NOSTRIL TWICE DAILY 03/20 completed Not Available Not Available Not Available ibuprofen 600 mg tablet TAKE 1 TABLET BY MOUTH THREE TIMES DAILY NEEDED FOR PAIN 03/20 completed Not Available Not Available Not Available estradiol 0.01% (0.1 mg/gram) vaginal cream INSERT 1 GRAM VAGINALLY 2 TO 3 TIMES EVERY WEEK AT BEDTIME 03/20 completed Not Available Not Available Not Available methylpredn isolone 4 mg tablets in a dose pack 12/21 completed Not Available Not Available Not Available ipratropium bromide 42 mcg (0.06 %) nasal spray [place] 2 sprays 3 times a day by intranasa l route. 06/14 completed Not Available Not Available Not Available fluticasone propionate 50 mcg/actuati on nasal spray,suspe nsion SHAKE LIQUID AND USE 2 SPRAYS IN EACH NOSTRIL EVERY DAY DIRECTED active Not Available Not Available No t Available loratadine 10 mg tablet 12/21 completed Not Available Not Available Not Available mometasone 0.1 % topical cream APPLY THIN LAYER TOPICALLY TO THE AFFECTED AREA ONCE DAILY 03/20 completed Not Available Not Available Not Available progesteron e micronized 100 mg capsule TK 1 C PO QD HS active Not Available Not Available No t Available amoxicillin 875 mg-potassiu m clavulanate 125 mg tablet TAKE 1 TABLET BY MOUTH TWICE DAILY FOR 10 DAYS 06/15 completed Not Available Not Available Not Available cyclobenzap rine 5 mg tablet TAKE 1 TABLET BY MOUTH AT BEDTIME NEEDED FOR MUSCLE SPASM 03/20 completed Not Available Not Available Not Available ciprofloxac in 0.3 %-dexametha sone 0.1 % ear drops,suspe nsion INSTILL 4 DROPS INTO AFFECTED EAR(S) BY OTIC ROUTE 2 TIMES PER DAY FOR 7 DAYS 2023 active Not Available Not Available Not Avai lable nitrofurant oin monohydrate /macrocryst als 100 mg capsule TAKE 1 CAPSULE BY MOUTH EVERY 12 HOURS FOR 7 DAYS 03/20 completed Not Available Not Available Not Available capsaicin 0.1 % topical cream apply cream to foot up to tid daily 04/22 completed Not Available Not Available Not Available Voltaren 1 % topical gel Apply to top of right foot up to twice daily 04/22 completed Not Available Not Available Not Available Amitiza 8 mcg capsule TK ONE C PO BID 04/22 completed Not Available Not Available Not Available cholecalcif jesus (vitamin D3) 50 mcg (2,000 unit) capsule TAKE 1 CAPSULE BY MOUTH EVERY DAY 03/20 completed Not Available Not Available Not Available azelastine 205.5 mcg (0.15 %) nasal spray USE 2 SPRAYS IN EACH NOSTRIL TWICE DAILY active Not Available Not Available No t Available EpiPen 2-Juan 0.3 mg/0.3 mL injection, auto-inject or INJECT INTRAMUSC ULARLY DIRECTED IN THE THIGH FOR ANAPHYLAX IS AND CALL 911. 04/22 completed Not Available Not Available Not Available Fyavolv 0.5 mg-2.5 mcg tablet 04/22 completed Not Available Not Available Not Available Vitals Date Recorded Body weight Body mass index (BMI) Body height Body temperature Provider Name and Address Organization Details Last Updated DateTime 03/20/2023 45829.03 g 32.3 kg/m2 170.18 cm 98 [degF] Mae Dillon RN [place] [facility] [employer] 03/20/2023 11:27:12 Date Recorded Body height Body mass index (BMI) Body weight Body temperature Provider Name and Address Organization Details Last Updated DateTime 04/17/2023 170.18 cm 31.7 kg/m2 38662.1 g 97.6 [degF] Mea Dillon RN [facility] 04/17/2023 11:51:22 Date Recorded Body height Body mass index (BMI) Body weight Body temperature Provider Name and Address Organization Details Last Updated DateTime 05/09/2023 170.18 cm 31.8 kg/m2 12295.25 g 97.7 [degF] Mae Dillon RN [facility] 05/09/2023 11:14:09 Date Recorded Body height Body mass index (BMI) Body weight Body temperature Provider Name and Address Organization Details Last Updated DateTime 06/03/2023 170.18 cm 30.5 kg/m2 32954.51 g 97.8 [degF] Mae Dillon RN [facility] 06/03/2023 14:43:01 Date Recorded Body height Provider Name an d Address Organization Details Last Updated DateTime 06/15/2021 170.18 cm Not Available [facility] 19:16:21 Social History Question Answer Notes LastModified by [employer] Details LastModified Time Tobacco Smoking Status Never Smoker Not Available [facility] 04/11/2022 19:16:05 In The 14 Days Before Symptom Onset, Have You Had Close Contact With A Laboratory-confirm ed COVID-19 While That Case Was Ill? No [id number] Information not available 04/11/2022 In The 14 Days Before Symptom Onset, Have You Had Close Contact With A Person Who Is Under Investigation For COVID-19 While That Person Was Ill? No [id number] Information not available 04/11/2022 Have You Recently Traveled Abroad? No [id number] Information not available 04/11/2022 Sex: Unknown Functional Status Question Answer Note LastModified by [employer] Details LastModified Time What is your level of alcohol consumption? None [id number] Information not available 04/11/2022 Mental Status None recorded. Family History Relationship Description Onset Age of this Age Resolved Age Notes LastModified by Organization Details LastModified Time Father No current problems or disability [email or web address] Not available 03/20 11:26:06 Mother No current problems or disability [email or web address] Not available 03/20 11:26:06 Medical History Condition Response BLINDNESS N BLADDER PROBLEMS N MRSA N SLEEP APNEA N ALLERGIES/HAYFEVER N OTHER # 1 N INFECTIOUS DISEASE N HEART ARRHYTHMIA N LUNG DISEASE/DISORDER N INSOMNIA N RADIATION / CHEMOTHERAPY N COPD N HIGH CHOLESTEROL / HYPERLIPIDEMIA N Other # 2 N HYPERTHYROIDISM N BLOOD DISEASES N NEUROLOGICAL PROBLEMS N SURGERY N EDEMA N EAR OR HEARING PROBLEMS N CHRONIC PAIN SYNDROME N HYPOTHYROIDISM N DEPRESSION (INCLUDING POST ) N BACK / NECK PROBLEMS N HAVE YOU BEEN HOSPITALIZED OR SEEN IN [facility] ER IN THE PAST YEAR ? N STROKE/TIA N ULCERS N BENIGN PROSTATIC HYPERPLASIA N BREAST PROBLEMS N MYOCARDIAL INFARCTION N OBESITY N GERD/NAUSEA N HISTORY WITH COMPLICATIONS WITH ANESTHES IA ? N ANEURYSM N INPATIENT PSYCH CARE N CORONARY ARTERY DISEASE (CAD) N USE OF BLOOD THINNERS N NO SIGNIFICANT PAST MEDICAL HISTORY N DIABETES, TYPE N GASTROINTESTINAL DISORDER N PARATHYROID DISEASE N ENT N SEASONAL ALLERGIES N HEARTBURN / REFLUX N GASTROINTESTINAL BLEEDING N ASTHMA N HEPATITIS / LIVER DISEASE N PULMONARY DISEASE N SLEEP DISORDER N ALZHEIMER'S DISEASE N FATIGUE N HEADACHES/MIGRAINES N SEIZURES/EPILEPSY N GI PROBLEMS N CHF N Low Testosterone N PACEMAKER N DIZZINESS N HEART DISEASE/HEART PROBLEMS N AIDS/HIV N KIDNEY DISEASE N FRACTURES N LIVER DISEASE N HYPERTENSION N CANCER: SPECIFY N TOURETTE'S N BLOOD TRANSFUSION N ANESTHESIA COMPLICATIONS N ANEMIA/BLOOD DISORDER N CHRONIC EAR INFECTIONS N ATRIAL FIBRILLATION N PULMONARY EMBOLISM N AUTOIMMUNE DISEASE N TUBERCULOSIS N GLAUCOMA N FOOT PROBLEM N Gynecological HistoryNo gynecological history recorded. Obstetrics History GPAL:G 0 P 0 0 0 0 Past Encounters Encounter ID Performer Location Encounter Start Date Encounter Closed Date Diagnosis/Indication Diagnosis SNOMED-CT Code Diagnosis ICD10 Code Diagnosis Note [id number] [facility]_ DEFAULT_1 _1 , 04/22/2020 00:00:00 04/22/2020 10:34:56 [id number] [facility] _[facility]_M I[facility]_ DEFAULT_1 _1 , 06/10/2020 00:00:00 06/10/2020 09:08:48 [id number] Daniel Kasper MD _[facility]_M IGRATION_ DEFAULT_1 _1 , 06/13/2020 00:00:00 06/13/2020 15:14:05 [id number] MD [facility] [address] [place] [address] 06/23/2020 00:00:00 06/23/2020 11:07:25 [id number] MD [facility] [address] [place] [address] 07/28/2020 00:00:00 07/28/2020 10:37:30 [id number] [facility]_M IGR[facility]_ DEFAULT_1 _1 , 11/25/2020 00:00:00 11/25/2020 13:08:17 [id number] [facility] _[facility]_M IGRATION_ DEFAULT_1 _1 , 12/16/2020 00:00:00 12/16/2020 11:01:06 [id number] MD [facility] [address] [place] [address] 06/15/2021 00:00:00 06/15/2021 11:13:08 [id number] MD [facility] [address] [place] [address] 03/20/2023 11:13:14 03/25/2023 11:24:02 Impacted cerumen in left ear 3152744073 434146 H61.22 Acute sinusitis 28306987 J01.90 [id number] MD [facility] [address] [place] [address] 04/17/2023 11:38:53 04/17/2023 12:34:20 Hypertrophy of nasal turbinates 83688138 J34.3 [id number] MD [facility] [address] [place] [address] 05/09/2023 10:53:04 05/09/2023 11:54:10 Hypertrophy of nasal turbinates 78868880 J34.3 [id number] MD [facility]ERT[facility] [address] [place] [address] 06/03/2023 14:27:11 06/04/2023 11:22:18 Otitis externa 1686012 H60.91 Health Concerns Section Related Observation LastModified by Organization Detai ls LastModified Time None Recorded Concern Status LastModified by Organization Details LastModified Time None Recorded Advance Directives Directive None Recorded Payers Insurance Date Sequence Insurance Name Policy Number Policy Barrios Covered Member ID Barrios Member ID Guarantor Name 06/04/2023 1 [facility] (MEDICAID HMO) [id number] Wu Itz [id number] Wu Mobley Notes Date Note Type Note Provider Name and Address Organization Details Recorded Time 03/20/2023 text/html sean Kasper MD [address], [address] [employer], [place], [address], [employer] [facility] [employer] 03/20/2023 11:42:49 04/17/2023 text/html Did great 3 year s ago after septoplasty but now has total left nasal obstruction. She is on Flonase now. Flonase helped a little. Daniel Kasper MD [address], [place], [address], [employer] [facility] [employer] [facility] 04/17/2023 12:14:16 05/09/2023 text/html Doing great. Lemus s reort hearing loss which is unrelated Daniel Kasper MD [address], [place], [address], [employer] [facility] [employer] [facility] 05/09/2023 11:33:23 06/03/2023 text/html this patient developed a right earache 1 week ago. She has been taking Tylenol. Her nasal airway has significantly improved. Daniel Kasper MD [address], [place], [address], [facility] [employer] [facility] [employer] 06/03/2023 14:53:13 OBGyn Episode No OBEpisode recorded.
--- OUTSIDE RECORDS SUMMARY | 2024-07-23 12:59 | XMS_ITS | Data Portability ---
Author Organization [facility] Address [address] [place] [address] Care Team Providers Care Dryland Farmer Name Role Phone DIEGO LIMON Primary Care Provider [phone] Assessment Encounter Date Assessment Date Assessment LastModified by Organization Details LastModified Time 06/26/2022 06/26/2022 Annual gynecological exam performed. Patient will come back in a year unless there are new symptoms. [email or web address] Not available 06/26/2022 10:16:38 07/02/2023 07/02/2023 Annual gynecological exam performed. Patient will come back in a year unless there are new symptoms. [email or web address] Not available 07/01/2023 16:08:17 07/07/2024 07/07/2024 Annual gynecological exam performed. Patient will come back in a year unless there are new symptoms. [email or web address] Not available 07/07/2024 10:26:31 Plan of Treatment Reminders Order Date Submit Date Provider Last Modified By Organization Details Last Modified Time Details Appointments None recorded . Lab unlisted lab - women's health swab plus, JENNY 2024 025 [facility] (Lab), [address], [place], [address], 14:34:16 pap, IG + HR HPV - HPV regardle ss but if HPV is positive need subtypin g 16,18/45 2024 025 [facility] (Lab), [address], [place], [address], 5 14:34:16 urinalys is, dipstick 2022 023 [facility], [facility] [address], [place], [address], 12:39:30 Referral None recorded . Procedures None recorded . Surgeries None recorded . Imaging MAMMO, screenin g, digital, bilatera l [address] [facility], [address], [place], [address], 5 10:12:34 MAMMO, screenin g, digital, bilatera l 2022 023 [facility], [address], [address], [place], [address], 3 16:15:09 Medication Orders Estrace 0.01% (0.1 mg/gram) vaginal cream 2022 023 [id number], [address], [place], [id number], 3 11:35:33 CombiPat ch 0.05 mg-0.14 mg/24 hr transder mal 2022 023 [id number], [address], [place], [id number], 3 11:37:19 CombiPat ch 0.05 mg-0.14 mg/24 hr transder mal 2021 022 [id number], [address], [place], [id number], 2 10:07:26 Patient TargetsNo targets recorded. Patient InstructionsNo instructions recorded. Reason for Referral None Reported. Results Created Date Observation Date Name Description Value Unit Range Abnormal Flag Note LastModifiedBy Organization Detail LastModifiedTime 06/27/19 23 06/26/2022 IMAGE GUIDE D PAP AND HPV REGAR DLESS image guided Pap, HPV regardless of Pap result SEE RESULT S BELOW CASE REPOR T: Cytol ogy Gynec ologi philip Repor t Case: [id number] Autho deborah avila Provi douglas: Aleida Phillips, CRIME VICTIM SPECIALIST Colle cted: 06/26 1354 Order ing Locat ion: [place] Patho logy Recei venus: 06/27 0158 First Scree n: Leida baron, Shelley Rescr een: Cl verduzco, Krishan irizarry, CT Speci men: Scree abhay Pap - Image d, Cervi x STATE MENT OF ADEQU ACY: Satis facto ry for evalu ation Trans forma tion zone compo nent prese nt Parti ally obscu ring infla mmati on and blood prese nt FINAL DIAGN OSIS: Negat joe for Intra epith elial Lesio n or Yessi soni (NIL) . Atrop hic cell ivelisse neal. Elect leora green susan d by Cl verduzco, Krishan irizarry, CT on 2022 at 4:39 PM ----- ----- ----- ----- ----- ----- ----- ----- ----- ----- ----- ----- ----- ----- ----- ----- ----- ---- HPV RESUL TS: HPV mRNA E6/E7 : No HPV mRNA Detec kvng NOTE: This high risk HPV mRNA assay detec ts fourt een high- risk HPV types (16, 18, 31, 33, 35, 39, 45, 51, 52, 56, 58, 59, 66, 68) witho ut diffe renti ation . COMME NT: Slide scree rolando manua lly due to rejec tion by the Thinp rep Imagi ng Syste m. CLINI PHILIP INFOR MATIO N: Menst rual Statu s: LMP (if appli cable ): Clini philip Histo ry/Pr eviou s Pap: Type of Neopl awais (if appli cable ): Signi fican t Clini philip Findi ngs: Other Histo ry: Hormo yohannes (if appli cable ): PAP EDUCA VEE L NOTE: The Pap Test is a scree abhay test with an inher ent false negat joe rate. Liqui d-bas ed sampl ing may decre ase, but will not elimi vanessa, false negat joe resul ts. A negat joe resul t does not precl ude the prese nce and/o r devel opmen t of disea se, since the prese nce of abnor mal cells in the sampl e depen ds on the locat ion of the lesio n and sampl ing techn ique. Dorinda nued regul ar scree abhay is the best metho d of cance r preve ntion . If repor kvng cytol ogic findi ng do not corre late with physi pihlip and/o r histo rical findi ngs, furth er inves tigat ion is recom wilma d, as clini raúl warra nted. Not Available [facility] (Lab) [address], [place], [address], 06/28/2022 17:45:06 10/10/1910/09/2022 urina lysis , dipst ick Leukocytes 1+ Not Available [facility] [address], [place], [address], 10/09/2022 12:39:03 10/10/1910/09/2022 urina lysis , dipst ick Nitrite neg Not Available [facility] [address], [place], [address], 10/09/2022 12:39:03 10/10/19 23 10/09/2022 urina lysis , dipst ick Urobilinogen neg Not Available [facility] irizarry [address], [place], [address], 10/09/2022 12:39:03 10/10/19 23 10/09/2022 urina lysis , dipst ick Protein neg Not Available [facility] [address], [place], [address], 10/09/2022 12:39:03 10/10/19 23 10/09/2022 urina lysis , dipst ick pH 5 Not Available [facility] [address], [place], [address], 10/09/2022 12:39:03 10/10/19 23 10/09/2022 urina lysis , dipst ick Blood + Not Available [facility] [address], [place], [address], 10/09/2022 12:39:03 10/10/19 23 10/09/2022 urina lysis , dipst ick Specific [place] 1.005 Not Available [facility] [address], [place], [address], 10/09/2022 12:39:03 10/10/19 23 10/09/2022 urina lysis , dipst ick Ketone neg Not Available [facility] [address], [place], [address], 10/09/2022 12:39:03 10/10/19 23 10/09/2022 urina lysis , dipst ick Bilirubin neg Not Available [facility] [address], [place], [address], 10/09/2022 12:39:03 10/10/19 23 10/09/2022 urina lysis , dipst ick Glucose neg Not Available [facility] [address], [place], [address], 10/09/2022 12:39:03 10/10/19 23 10/09/2022 urina lysis , dipst ick Appearance clear Not Available [facility] [address], [place], [address], 10/09/2022 12:39:03 10/10/19 23 10/09/2022 urina lysis , dipst ick Color yellow Not Available [facility] [place] [address], [place], [address], 10/09/2022 12:39:03 07/02/19 24 07/02/2023 IMAGE GUIDE D PAP AND HPV REGAR DLESS image guided Pap, HPV regardless of Pap result SEE RESULT S BELOW CASE REPOR T: Cytol ogy Gynec ologi philip Repor t Case: [id number] Autho deborah margarita Provi douglas: Aleida Phillips, ESTEBAN Colle cted: 07/01 1131 Order ing Locat ion: [place] Patho logy Recei venus: 07/02 0210 First Scree n: Alison Gaming , CT Rescr een: Shelley Leigh Speci men: Scree abhay Pap - Image d, Cervi x STATE MENT OF ADEQU ACY: Satis facto ry for evalu ation Trans forma tion zone compo nent canno t be defin itive ly ident ified due to the prese nce of atrop hy or other hormo nal martínez es ----- ----- ----- ----- ----- ----- ----- ----- ----- ----- ----- ----- ----- ----- ----- ----- ----- ---- FINAL DIAGN OSIS: Negat joe for Intra epith elial Omid galdamez or Yessi soni ([facility]) . Atrop hic herlinda oviedo rn. Terrie davis d by Shelley Leigh on 2023 at 7:52 PM ----- ----- ----- ----- ----- ----- ----- ----- ----- ----- ----- ----- ----- ----- ----- ----- ----- ---- HPV RESUL TS: HPV mRNA E6/E7 : No HPV mRNA Detec kvng NOTE: This high risk HPV mRNA assay detec ts fourt een high- risk HPV types (16, 18, 31, 33, 35, 39, 45, 51, 52, 56, 58, 59, 66, 68) witho ut diffe renti ation . COMME NT: This speci men was revie wed by a Cytot echno logis t and/o r Patho logis t (as indic ated in this repor t) after evalu ation using the Thinp rep Imagi ng Syste m. CLINI PHILIP INFOR MATIO N: Menst rual Statu s: LMP (if appli cable ): Clini philip Histo ry/Pr eviou s Pap: Type of Neopl awais (if appli cable ): Signi fican t Clini philip Findi ngs: Other Histo ry: Hormo yohannes (if appli cable ): PAP EDUCA VEE L NOTE: The Pap Test is a scree abhay test with an inher ent false negat joe rate. Liqui d-bas ed sampl ing may decre ase, but will not elimi vanessa, false negat joe resul ts. A negat joe resul t does not precl ude the prese nce and/o r devel opmen t of disea se, since the prese nce of abnor mal cells in the sampl e depen ds on the locat ion of the lesio n and sampl ing techn ique. Dorinda nued regul ar scree abhay is the best metho d of cance r preve ntion . If repor kvng cytol ogic findi ng do not corre late with physi philip and/o r histo rical findi ngs, furth er inves tigat ion is recom wilma d, as clini raúl sosa nted. Not Available [facility] (Lab) [address], [place], [address], 07/05/2023 20:55:30 07/08/19 25 07/07/2024 [facility] SWAB PLUS, JENNY bacterial vaginosis (bv), tma Negati ve negati ve Not Available [facility] (Lab) [address] [place], [address], 07/10/2024 14:34:15 07/08/19 25 07/07/2024 [facility] lesley species, tma Negati ve negati ve Not Available [facility] (Lab) [address] [facility], [place], [address], 07/10/2024 14:34:15 07/08/19 25 07/07/2024 [facility] J[facility]Y lesley glabrata, tma Negati ve negati ve Not Available [facility] (Lab) [address] [facility], [place], [address], 07/10/2024 14:34:15 07/08/19 25 07/07/2024 [facility] JENNY trichomonas vaginalis, tma Negati ve negati ve Not Available [facility] (Lab) [address] [place], [address], 07/10/2024 14:34:15 07/08/19 25 07/07/2024 [facility] JENNY chlamydia trachomatis, PCR Negati ve negati ve Not Available [facility] (Lab) [address] [place], [address], 07/10/2024 14:34:15 07/08/19 25 07/07/2024 [facility] H SWAB PLUS, JENNY neisseria gonorrhoeae, PCR Negati ve negati ve Bacte rial vagin osis detec ts the follo wing bacte kristian assoc iated with bacte rial vagin osis (BV): Lacto bacil raya (L. gasse ri, L. crisp atus and L. jense ridge), Gardn erell a vagin kirby, and Atopo bium vagin ae. A singl e quali tativ e resul t is repor kvng base on instr ument softw are to deter mine BV posit joe or negat joe statu s. The Deisy da speci es group tests for C. albic ans, C. tropi calis , C. parap patti is, C. dubli niens is. Testi ng is perfo rmed using the Trans cript ion Media kvng Ampli ficat ion metho d. Tests for Deisy da glabr santos, Trich omona s vagin kirby, Chlam ydia trach omati s, and Neiss eria gonor rhoea e are also inclu ded in this panel . Not Available [facility] (Lab) [address] [facility], [place], [address], 07/10/2024 14:34:15 07/08/19 25 07/07/2024 IMAGE GUIDE D PAP AND HPV REGAR DLESS image guided Pap, HPV regardless of Pap result SEE RESULT S BELOW abnormal CASE REPOR T: Cytol ogy Gynec ologi philip Repor t Case: [id number] Autho deborah margarita Provi douglas: Aleida Phillips, CRIME VICTIM SPECIALIST Colle cted: 07/07 1308 Order ing Locat ion: [place] Patho logy Recei evnus: 07/08 0715 First Scree n: Latrell lynn, Ani, CT Rescr een: Connie Jimenes , CT Patho logis t: Sarah Paulino MD Speci men: Scree abhay Pap - Image d, Cervi x STATE MENT OF ADEQU ACY: Satis facto ry for evalu ation Trans forma tion zone compo nent canno t be defin itive ly ident ified due to the prese nce of atrop hy or other hormo nal martínez es ----- ----- ----- ----- ----- ----- ----- ----- ----- ----- ----- ----- ----- ----- ----- ----- ----- ---- FINAL DIAGN OSIS: Negat joe for Intra epith elial Lesio n or Yessi soni (NIL) . Atrop hy with infla mmati on. Elect leora sheets by Sarah Paulino MD on 2024 at 1238 CDT ----- ----- ----- ----- ----- ----- ----- ----- ----- ----- ----- ----- ----- ----- ----- ----- ----- ---- HPV RESUL TS: HPV mRNA E6/E7 : Posit joe - HPV mRNA Detec kvng HPV GENOT YPE 16 (BIBI) : Not Detec kvng HPV GENOT YPE 18/45 (BIBI) : Not Detec kvng NOTE: This high risk HPV mRNA assay detec ts fourt een high- risk HPV types (16, 18, 31, 33, 35, 39, 45, 51, 52, 56, 58, 59, 66, 68) witho ut diffe renti ation . This assay can diffe renti ate HPV 16 from HPV 18/45 , but does not diffe renti ate betwe en HPV 18 and HPV 45. A negat joe HPV 16, 18/45 genot ype assay resul t does not exclu de the possi bilit y of cytol ogic abnor malit ies or of futur e or under lying JANELLE 1, JANELLE 3 or cance r. COMME NT: This speci men was revie wed by a Cytot echno logis t and/o r Patho logis t (as indic ated in this repor t) after evalu ation using the Thinp rep Imagi ng Syste m. CLINI PHILIP INFOR MATIO N: Menst rual Statu s: LMP (if appli cable ): Clini philip Histo ry/Pr eviou s Pap: Type of Neopl awais (if appli cable ): Signi fican t Clini philip Findi ngs: Other Histo ry: Hormo yohannes (if appli cable ): PAP EDUCA VEE L NOTE: The Pap Test is a scree abhay test with an inher ent false negat joe rate. Liqui d-bas ed sampl ing may decre ase, but will not elimi vanessa, false negat joe resul ts. A negat joe resul t does not precl ude the prese nce and/o r devel opmen t of disea se, since the prese nce of abnor mal cells in the sampl e depen ds on the locat ion of the lesio n and sampl ing techn ique. Dorinda nued regul ar scree abhay is the best metho d of cance r preve ntion . If repor kvng cytol ogic findi ng do not corre late with physi philip and/o r histo rical findi ngs, furth er inves tigat ion is recom wilma d, as clini raúl sosa nted. Not Available [facility] (Lab) [address], [place], [address], 07/10/2024 14:34:16 Result Notes None recorded. Problems Name Problem SNOMED Code Status Onset Date Resolution Date Notes Provider Name and Address Organization Details Recorded Time Left lower quadrant pain 513540323 Completed 201709/26/2020 LLQ pain;Tex rded Elsewhere : No Locati on: [facility] So urce: EHR Chron ic: N Practic e ID: 0001 Bill able Time: 01:45:00 PM Marti Munson [facility] 1 13:12:57 Allergic rhinitis [id number] Completed 201609/26/2020 Allergic rhinitis, unspecifi ed;Record ed Elsewhere : No Locati on: [facility] So urce: EHR Chron ic: N Practic e ID: 0001 Bill able Time: 11:15:00 AM Marti Munson [facility] 1 13:12:54 Screenin g for malignan t neoplasm of rectum Completed 201606/16/2020 Encounter for screening for malignant neoplasm of rectum;Re corded Elsewhere : No Locati on: [facility] So urce: EHR Chron ic: N Practic e ID: 0001 Bill able Time: 11:15:00 AM Marti [facility] 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 16:57:01 Muscle pain [id number] Completed 201609/26/2020 Myalgia;R ecorded Elsewhere : No Locati on: [facility] So urce: EHR Chron ic: N Practic e ID: 0001 Bill able Time: 11:15:00 AM Marti [facility] 13:13:00 Menopaus e present [id number] Completed 201809/26/2020 Menopausa l and female climacter ic states;Re corded Elsewhere : No Locati on: [facility] So urce: EHR Chron ic: N Practic e ID: 0001 Bill able Time: 01:15:00 PM Marti [facility] 13:12:58 Sinusiti s [id number] Completed 201709/26/2020 Sinusitis ;Recorded Elsewhere : No Locati on: [facility] So urce: EHR Chron ic: N Practic e ID: 0001 Bill able Time: 02:30:00 PM Marti [facility] 13:13:[address] Concept Completed 201706/16/2020 Encntr for general adult medical exam w/o abnormal findings; Recorded Elsewhere : No Locati on: [facility] So urce: EHR Chron ic: N Practic e ID: 0001 Bill able Time: 02:30:00 PM Marti [facility] 1 16:56:58 Evaluati on finding Completed 201806/16/2020 Hematuria , unspecifi ed;Record ed Elsewhere : No Locati on: [facility] So urce: EHR Chron ic: N Practic e ID: 0001 Bill able Time: 09:30:00 AM Marti Munson [facility] 16:56:50 Disorder of breast [id number] Completed 201709/26/2020 Disorder of breast, unspecifi ed;Record ed Elsewhere : No Locati on: [facility] So urce: EHR Chron ic: N Practic e ID: 0001 Bill able Time: 01:45:00 PM [facility] 13:12:55 Problem Notes None recorded. Procedures Surgical History Date Name Laterality Status Provider Name and Address Organization Details Recorded Time 07/20/19 22 Colposcopy completed CHUCK Kwon- [address], [place], [address], [facility] 07/19/2021 11:03:38 06/21/19 21 Date of Last Mammogram completed Marti Munson [facility] 06/20/2020 10:02:18 02/11/19 14 Endometrial Ablation completed Shannon Brown [facility] 06/24/2021 11:29:11 Imaging Results None recorded. Procedure Notes None recorded. Medical Equipment None Reported. Allergies No known drug allergies Medications Name Sig Start Date Stop Date Status Note LastModified by Organization Details LastModified Time amoxicill in 500 mg capsule take 1 capsule by oral route every 12 hours x 7 days 06/16 completed Prescrib ed Elsewher e: No Locat ion: [facility] M odify By: tomasz mcdaniels DateTime : 03/21/19 12:21:57 PM Not Available Not Available Not Available acetic acid 2 % ear solution INSTILL 3 DROPS TO RIGHT EAR TWICE DAILY 06/26 completed Not Available Not Available Not Available CombiPatc h 0.05 mg-0.14 mg/24 hr transderm al APPLY 1 PATCH TOPICALL Y TO THE SKIN 2 TIMES EVERY WEEK 07/01 completed Not Available Not Available Not Available ibuprofen 800 mg tablet TAKE 1 TABLET BY MOUTH EVERY 6 TO 8 HOURS WITH FOOD NEEDED 06/30 completed Not Available Not Available Not Available fluconazo le 150 mg tablet TAKE 1 TABLET BY MOUTH FOR 1 DOSE 07/07 completed Not Available Not Available Not Available benzonata te 200 mg capsule TK 1 C PO Q 6 H 06/20 completed Not Available Not Available Not Available hydrocodo ne 5 mg-acetam inophen 325 mg tablet TAKE 1 TABLET BY MOUTH EVERY 6 HOURS NEEDED FOR PAIN 06/24 completed Not Available Not Available Not Available vitamin E 100 unit capsule 06/16 completed Prescrib ed Elsewher e: Yes [facility] By: january buchanan DateTime : 06/18/19 19 09:30:00 AM Not Available Not Available Not Available meloxicam 15 mg tablet 06/16 completed Not Available Not Available Not Available sumatript an 50 mg tablet TAKE 1 TABLET BY MOUTH AT ONSET OF HEADACHE . MAY REPEAT ONCE IN 2 HOURS . MAX 2 TABLETS /24 HOURS 07/01 completed Not Available Not Available Not Available metronida zole 500 mg tablet TAKE 1 TABLET BY MOUTH EVERY 12 HOURS FOR 7 DAYS 09/01 completed Not Available Not Available Not Available amoxicill in 500 mg tablet take 1 tablet by oral route 3 times every day 08/20 completed Prescrib ed Elsewher e: No [facility] By: january Emerson ncounter DateTime : 03/18/19 18 02:30:00 PM Not Available Not Available Not Available amoxicill in 875 mg tablet TAKE 1 TABLET BY MOUTH EVERY 12 HOURS 07/07 completed Not Available Not Available Not Available Deep Sea Nasal 0.65 % spray aerosol SPRAY TWICE IN EACH NOSTRIL EVERY 4 HOURS WHILE AWAKE 06/26 completed Not Available Not Available Not Available Vitamin D3 10 mcg (400 unit) tablet 06/16 completed Prescrib sarahy Allan e: Yes [facility] By: january Curly dewayne DateTime : 06/18/19 09:30:00 AM Not Available Not Available Not Available estradiol 0.025 mg/24 hr weekly transderm al patch APPLY 1 PATCH EXTERNAL LY TO THE SKIN EVERY WEEK active Not Available Not Available No t Available prednisol one acetate 1 % eye drops,lian pension 07/07 completed Not Available Not Available Not Available benzonata te 100 mg capsule TAKE 1 CAPSULE BY MOUTH THREE TIMES DAILY NEEDED 06/26 completed Not Available Not Available Not Available hydrocodo ne 7.5 mg-acetam inophen 325 mg tablet TAKE 1 TABLET BY MOUTH EVERY 4 HOURS NEEDED 07/01 completed Not Available Not Available Not Available lidocaine 5 % topical patch APPLY 1 PATCH TOPICALL Y TO THE SKIN EVERY DAY. MAY WEAR UP TO 12 HOURS. NEEDED 07/01 completed Not Available Not Available Not Available polymyxin B sulfate 10,000 unit-trim ethoprim 1 mg/mL eye drops 06/16 completed Not Available Not Available Not Available docusate sodium 100 mg capsule TAKE ONE CAPSULE BY MOUTH TWICE DAILY 06/26 completed Not Available Not Available Not Available CombiPatc h 0.05 mg-0.25 mg/24 hr transderm al APPLY 1 PATCH TOPICALL Y TO THE SKIN 2 TIMES A WEEK 06/24 completed Not Available Not Available Not Available omeprazol e 20 mg capsule,d elayed release TAKE 1 CAPSULE BY MOUTH EVERY DAY BEFORE A MEAL 07/01 completed Not Available Not Available Not Available monteluka st 10 mg tablet TAKE 1 TABLET BY MOUTH EVERY DAY IN THE EVENING 07/01 completed Not Available Not Available Not Available norethind david acetate 5 mg tablet take 1 tablet by oral route every day during second half of the menstrua l cycle 06/16 completed Not Available Not Available Not Available ergocalci ferol (vitamin D2) 1,250 mcg (50,000 unit) capsule TK 1 C PO Q WK 09/26 completed Not Available Not Available Not Available azelastin e 137 mcg (0.1 %) nasal spray USE 1 SPRAY IN EACH NOSTRIL TWICE DAILY active Not Available Not Available No t Available ibuprofen 600 mg tablet TAKE 1 TABLET BY MOUTH THREE TIMES DAILY NEEDED FOR PAIN 06/24 completed Not Available Not Available Not Available estradiol 0.01% (0.1 mg/gram) vaginal cream INSERT 1 GRAM VAGINALL Y 2 TO 3 TIMES EVERY WEEK AT BEDTIME 07/01 completed Not Available Not Available Not Available scopolami ne 1 mg over 3 days transderm al patch APPLY 1 PATCH TOPICALL Y TO THE SKIN 1 TIME FOR 1 DOSE 06/26 completed Not Available Not Available Not Available estradiol 0.0375 mg/24 hr semiweekl y transderm al patch Apply 1 patch twice a week by transder mal route for 30 days. 06/30 completed Not Available Not Available Not Available fluticaso ne propionat e 50 mcg/actua tion nasal spray,lian pension SHAKE LIQUID AND USE 2 SPRAYS IN EACH NOSTRIL EVERY DAY DIRECTED 07/01 completed Not Available Not Available Not Available mometason e 0.1 % topical cream APPLY THIN LAYER TOPICALL Y TO THE AFFECTED AREA ONCE DAILY 06/24 completed Not Available Not Available Not Available progester one micronize d 100 mg capsule TAKE 1 CAPSULE BY MOUTH EVERY DAY AT BEDTIME 09/01 completed Not Available Not Available Not Available amoxicill in 875 mg-potass ium clavulana te 125 mg tablet TAKE 1 TABLET BY MOUTH EVERY 12 HOURS FOR 10 DAYS 06/26 completed Not Available Not Available Not Available oxycodone 5 mg tablet TAKE 1 TO 2 TABLETS BY MOUTH EVERY 4 TO 6 HOURS NEEDED FOR PAIN 06/26 completed Not Available Not Available Not Available cyclobenz aprine 5 mg tablet TAKE 1 TABLET BY MOUTH AT BEDTIME NEEDED FOR MUSCLE SPASM 07/01 completed Not Available Not Available Not Available ciproflox acin 0.3 %-dexamet hasone 0.1 % ear drops,lian pension SHAKE LIQUID AND INSTILL 4 DROPS TO AFFECTED EAR TWICE DAILY FOR 7 DAYS 07/07 completed Not Available Not Available Not Available nitrofura ntoin monohydra te/macroc rystals 100 mg capsule TAKE 1 CAPSULE BY MOUTH EVERY 12 HOURS FOR 7 DAYS 06/30 completed Not Available Not Available Not Available amoxicill in 06/16 completed Not Available Not Available Not Available vitamin E 06/16 completed Not Available Not Available Not Available Diflucan 06/16 completed Not Available Not Available Not Available Prometriu m 06/16 completed Not Available Not Available Not Available Vitamin D3 06/16 completed Not Available Not Available Not Available Climara 06/16 completed Not Available Not Available Not Available cholecalc iferol (vitamin D3) 50 mcg (2,000 unit) capsule TAKE 1 CAPSULE BY MOUTH EVERY DAY 06/24 completed Not Available Not Available Not Available azelastin e 205.5 mcg (0.15 %) nasal spray USE 2 SPRAYS IN EACH NOSTRIL DAILY 06/26 completed Not Available Not Available Not Available norethind david 06/16 completed Not Available Not Available Not Available Fyavolv 0.5 mg-2.5 mcg tablet take 1 tablet by oral route every day 06/16 completed Not Available Not Available Not Available BinaxNOW COVID-19 Ag Self Test kit TEST DIRECTED TODAY 06/26 completed Not Available Not Available Not Available Vitals Date Recorded Body height Body mass index (BMI) Body weight Systolic blood pressure Diastolic blood pressure Provider Name and Address Organization Details Last Updated DateTime 06/26/2022 170.18 cm 31.5 kg/m2 97163.78 g 111 mm[Hg] 73 mm[Hg] Lissett Hua [facility] 3 10:16:55 Date Recorded Body height Body mass index (BMI) Body weight Systolic blood pressure Diastolic blood pressure Provider Name and Address Organization Details Last Updated DateTime 07/02/2023 170.18 cm 31 kg/m2 11732.29 g 112 mm[Hg] 70 mm[Hg] Naty Givens [facility] 4 09:53:08 Date Recorded Body height Body mass index (BMI) Body weight Systolic blood pressure Diastolic blood pressure Provider Name and Address Organization Details Last Updated DateTime 07/07/2024 170.18 cm 31.3 kg/m2 27077.04 g 112 mm[Hg] 72 mm[Hg] Mindy Love [facility] 5 10:27:26 Date Recorded Body height Systolic blood pressure Diastolic blood pressure Provider Name and Address Organization Details Last Updated DateTime 09/01/2021 170.18 cm 118 mm[Hg] 74 mm[Hg] Marti Munson [facility] 09/01/2021 09:56:31 Date Recorded Body height Body mass index (BMI) Body weight Systolic blood pressure Diastolic blood pressure Provider Name and Address Organization Details Last Updated DateTime 10/09/2022 170.18 cm 31.5 kg/m2 29042.78 g 115 mm[Hg] 77 mm[Hg] Lissett Hua [facility] 3 12:14:22 Social History Question Answer Notes LastModified by Organizat ion Details LastModified Time Tobacco Smoking Status Never Smoker Rosmery ferraro, [facility] 06/18/2019 10:10:09 Are You Blind Or Do You Have Difficulty Seeing? No Information n ot available 06/16/2020 What Is Your Level Of Caffeine Consumption? Moderate Information not available 06/16/2020 In The 14 Days Before Symptom Onset, Have You Had Close Contact With A Laboratory-confirm ed COVID-19 While That Case Was Ill? No Information n ot available 06/24/2021 In The 14 Days Before Symptom Onset, Have You Had Close Contact With A Person Who Is Under Investigation For COVID-19 While That Person Was Ill? No [email or web address] Information not available 06/24/2021 Have You Been To An Area Known To Be High Risk For COVID-19? No [email or web address] Information not available 06/24/2021 Are You Deaf Or Do You Have Serious Difficulty Hearing? No Information not available 06/16/2020 What Type Of Diet Are You Following? REGULAR Information n ot available 06/16/2020 What Is The Highest Grade Or Level Of School You Have Completed Or The Highest Degree You Have Received? [id number] [email or web address] Information not available 07/07/2024 Do You Use Your Seat Belt Or Car Seat Routinely? Yes Information not available 06/16/2020 Do You Have Smoke And Carbon Monoxide Detectors In Your Home? Yes Information not available 06/16/2020 How Much Tobacco Do You Smoke? No Information not available 07/07/2024 Do You Use Sunscreen Routinely? Yes Information not available 06/16/2020 Has Tobacco Cessation Counseling Been Provided? No [email or web address] Information not available 06/24/2021 Have You Used IV Drugs? No Information not available 07/07/2024 Do You Have Difficulty Walking Or Climbing Stairs? No [email or web address] Information not available 06/24/2021 Sex: Unknown Functional Status Question Answer Note LastModified by Organizat ion Details LastModified Time Do you use any illicit or recreational drugs? No Information not available 06/16/2020 Do you or have you ever used any other forms of tobacco or nicotine? No [email or web address] Information not available 06/24/2021 What is your level of alcohol consumption? Occasional Information not available 06/16/2020 Are you able to walk? YESWOREST Information not available 06/16/2020 Are you able to care for yourself? Yes [email or web address] Information n ot available 06/24/2021 Do you have difficulty dressing or bathing? No [email or web address] Information not available 06/24/2021 What is your exercise level? Occasional Information not available 06/16/2020 Mental Status Question Answer Note LastModified by Organization D etails LastModified Time Do you feel stressed (tense, restless, nervous, or anxious, or unable to sleep at night)? [id number] Information not available 06/16/2020 Family History Nothing Reported. Medical History Condition Response Allergies (Food, seasonal, environmental ) Y Other N Breast Cancer N Drug/Latex Allergies/Reactions N Blood Transfusion N Dermatologic Disorders N Lung Disease N Defects or Inherited Disease N Breast Problem N Gestational Diabetes N Hematologic disorders N Anesthesia Complications N History of STI Y Deep Vein Thrombosis N Polycystic ovary syndrome N Anxiety Disorder N Autoimmune disease N Arthritis N Infertility N Polyps N Acid Reflux (GERD) N History of abnormal pap N Cancer N Stroke N Varicosities N Neurologic/Epilepsy N Endometriosis N High Cholesterol N Headaches N Fibromyalgia N Kidney Disease N Heart Problems N Kidney or Bladder Problems N Thyroid Problems N GI Problems N Eating Disorder N Anemia N Art (IVF or FET) N Psychiatric Illness N Ovarian Cancer N Diabetes N Pulmonary (TB, Asthma) N Hepatitis/Liver Disease N No Past Medical History N Eczema N Urinary Tract Infection N Abuse/Domestic Violence N Asthma N Trauma/Violence N Depression/ depression N Heart Disease N Pre-Eclampsia N Hypertension N Osteoporosis N Thrombophilias N Gynecological History Statement/Question Response Abnormal Pap Y Date of Last Mammogram 06/20/2020 Date of LMP 04/11/2013 On BCP's at Conception? N STIs/STDs Y HPV Vaccine N Colposcopy Current Control Method Menopause Age at First Child 20 Date of Last Colonoscopy Sexually Active? Y Date of DEXA bone scan Age of first menstrual cycle 11 Date of Last Pap Smear Sexual Problems? N Desired Control Method Ablation LMP Approximate N Obstetrics History GPAL:G 2 P 2 0 0 2 Type Value Full Term 2 Living 2 Total 2 Past Encounters Encounter ID Performer Location Encounter Start Date Encounter Closed Date Diagnosis/Indication Diagnosis SNOMED-CT Code Diagnosis ICD10 Code Diagnosis Note [id number] Lanie Oliveira [facility] [address] [address] 06/18/2019 10:15:16 06/18/2019 11:07:50 Blood in urine 80506669 R31.9 Gynecologi c examination 43251688 Z01.419 Take Calcium with Vitamin D 12-1500mg daily. Do monthly self breast exams. It is advised to get annual flu shot in the fall and she could obtain at [facility] or [facility] care clinic. If you haven't received the Tdap vaccine in the last 10 years you should obtain one as well. Have mammogram yearly, bone density every 2-3 years and colonoscop y every 5-10 years depending on findings and history. Engage in daily exercise of low impact aerobic exercise 45-60 minutes 4-5 times weekly. Avoid tobacco and illicit drugs as well as using moderation with alcohol intake less than 1-2 8 oz beverages daily. This lifestyle behavior pattern will lead to less health conditions and longer life span. If BMI greater than 25 weight watchers or dietary consult advised. Questions have been answered. Patient appears to understand instructio ns, but if you have any further questions call or respond to this email Pap Hx is wnl Last pap 2019 HPV/Pap wnl Pap/HPV this year deferred per asccp guidelines Monogamous relationsh ip Colonoscop y UTD-PCP managed CBE done SBE rec Mammo was completed today. Pramod resent as she accidental ly threw the one she was to take out. Menopausal syndrome 1237 93998 N95.9 Patient is here for WWE & to f/u from starting E/P therapy for vasomotor sx's of menopause. She is doing extremely well on this therapy. Goals of therapy have been met: Resolution of daytime hot flashes, night sweats & feels mood is more steady; feels less irritable. Her spouse has noted a positive change in her. No vag spotting or irregular VB. She would like to continue taking the E/P therapy. UTD on lab work from PCP. Will have it sent over. Rx sent x 1yr RTO x 1yr or sooner if indicated. [id number] Lanie Oliveira , [facility] [address] [address] 06/20/2020 09:46:21 06/20/2020 11:03:03 Gynecologic examination [id number] Z01.419 Take Calcium with Vitamin D 12-1500mg daily. Do monthly self breast exams. It is advised to get annual flu shot in the fall and she could obtain at [facility] or [facility] take care clinic. If you haven't received the Tdap vaccine in the last 10 years you should obtain one as well. Have mammogram yearly, bone density every 2-3 years and colonoscop y every 5-10 years depending on findings and history. Engage in daily exercise of low impact aerobic exercise 45-60 minutes 4-5 times weekly. Avoid tobacco and illicit drugs as well as using moderation with alcohol intake less than 1-2 8 oz beverages daily. This lifestyle behavior pattern will lead to less health conditions and longer life span. If BMI greater than 25 weight watchers or dietary consult advised. Questions have been answered. Patient appears to understand instructio ns, but if you have any further questions call or respond to this email Pap Hx is wnl Last pap 2018 HPV/Pap wnl Pap/HPV this year deferred per asccp guidelines until 2023 unless otherwise indicated. Monogamous relationsh ip; declined std screening Colonoscop y UTD-PCP managed CBE done SBE rec Mammo was completed today. Menopausal symptom 58702 002 N95.1 Feels needs slight adjustment to HRT regimen. She does not like taking pills and feels might need slight dosage adjustment as having a few break through daytime hot flashes and night sweats. We agreed to trial of a patch that has both E/P. We discussed Menopausal Hormone therapy (MHT) for women with intact uterus with the goals of reliving vaso-motor sx's using estrogen/p rogestin therapy (EPT) using lowest doses for shortest duration in women 40-59yo. Contraindi cations include: Hx of DVT or thrombolic events, High cholestero l, Hx of breast cancer, known CHD, active liver disease, unexplaine d vag bleeding, high risk endometria l cancer, TIA. Side effects can include but are not limited to: Irregular vag bleeding,, breast tenderness , nausea, weight changes, libido changes, nausea. Adverse Rxn: Elevated BP migraine w/ visual changes, breast cancer dx, WA/stroke, DVT/PE, Endometria l cancer. Please contact office with any new or worsening side effects or adverse reactions. Or if a medical emergency please go to nearest ED/Urgency care for further evaluation . Understand ing verbalized . RTO x 3mos [id number] CHUCK [facility] [address] [address] 09/26/2020 13:02:53 09/26/2020 13:51:29 Menopausal symptom 03109093 N95.1 Patient is here today for a medicaton check of Combipatch . She voices goals of therapy have been met with use of this therapy. She denies neg side effects. She is eating, drinking, sleeping well; moods are stable & neg AUB. Wishes to continue this method of HRT. Appropriat e to continue this medication . Time spent in visit is a total of 18 mins with at least 50% of visit consisting of counseling and review of plan of care.Addit ional precaution shad measures were taken to minimize potential exposure to the Covid-19 virus during this patient s visit, including available hand attenuator upon arrive, temperatur e check and being asked a series of screening questions. All staff wore face coverings during this encounter, as well as provided additional cleaning and sanitizing of all surfaces, including countertop s, pens, chairs, door handles, light switches, etc, prior to and following the patient s visit. Vitamin D deficiency 347 83966 E55.9 RF sent for edwige davenportHaving blood from PCP soon. Vaginitis [id number] N76.0 Occasional yeast.Difl ucan sent prnIf issues continue or persist call for appt. [id number] Lanie Oliveira , [facility] [address] [address] 06/24/2021 11:04:41 06/24/2021 11:59:35 Gynecologic examination [id number] Z01.419 Take Calcium with Vitamin D 12-1500mg daily. Do monthly self breast exams. It is advised to get annual flu shot in the fall and she could obtain at [facility] or [facility] care clinic. If you haven't received the Tdap vaccine in the last 10 years you should obtain one as well. Have mammogram yearly, bone density every 2-3 years and colonoscop y every 5-10 years depending on findings and history. Engage in daily exercise of low impact aerobic exercise 45-60 minutes 4-5 times weekly. Avoid tobacco and illicit drugs as well as using moderation with alcohol intake less than 1-2 8 oz beverages daily. This lifestyle behavior pattern will lead to less health conditions and longer life span. If BMI greater than 25 weight watchers or dietary consult advised. Questions have been answered. Patient appears to understand instructio ns, but if you have any further questions call or respond to this email Pap/hpv sent STD Screen declined-n ot SA Genetic Screen discussed, declined Colon Screen cologuard form signed Dexa Screen na Routine Labs UTD PCPMammo done last week-wnl Menopausal symptom 65235 002 N95.1 Wants to change Combi-patc h.Still with hot flashes >3+ a day and occassiona l night sweats despite consistent use of HRT patch.We agreed to switch to Estradiol patch next dose; plus prometrium at HS. We discussed Menopausal Hormone therapy (MHT) for women with intact uterus with the goals of reliving vaso-motor sx's using estrogen/p rogestin therapy (EPT) using lowest doses for shortest duration in women 40-59yo. Contraindi cations include: Hx of DVT or thrombolic events, High cholestero l, Hx of breast cancer, known CHD, active liver disease, unexplaine d vag bleeding, high risk endometria l cancer, TIA. Side effects can include but are not limited to: Irregular vag bleeding,, breast tenderness , nausea, weight changes, libido changes, nausea. Adverse Rxn: Elevated BP migraine w/ visual changes, breast cancer dx, WA/stroke, DVT/PE, Endometria l cancer. Please contact office with any new or worsening side effects or adverse reactions. Or if a medical emergency please go to nearest ED/Urgency care for further evaluation . RTO x 2mos med check Screening colonoscopy 44 [id number] Z12.11 Cologuard screening [id number] Lanie Oliveira [facility] [address] [address] 07/19/2021 09:55:12 07/19/2021 11:23:16 Screening procedure 22788183 Z13.9 Human kenrick llomavirus deoxyribonucleic acid detected, high risk on cervical specimen 754611226 R87.810 See procedure notes.Post -procedure instructio ns reviewed with understand ing verbalized .Will contact with results & next steps in plan of care. Counseled on Pap/HPV guidelines /Testing/R esults with understand ing verbalized .All questions answered to patient satisfacti on. Booklet & additional resources regarding pap smear/HPV/ Pap results given. [email or web address] [email or web address].cancer.g ov/types/c ervical/un derstandin g-abnormal -hpv-and-p ap-test-re sults/unde rstanding- cervical-c hanges.pdf [id number] [facility] [address] [address] 09/01/2021 09:41:52 09/01/2021 10:31:33 Menopausal symptom 28255260 N95.1 Patient is here today for a medicaton check of Combi-patc h for menopause. She voices goals of therapy have been met with use of this therapy. She denies neg side effects. She is eating, drinking, sleeping well; moods are stable & neg aub. Wishes to continue this method of HRT. Appropriat e to continue this medication . Time spent in visit is a total of 15 mins with at least 50% of visit consisting of counseling and review of plan of care. [id number] CHUCK Cano [place] [address] [address] 06/26/2022 09:11:33 06/26/2022 11:45:48 Atrophic vulva 422082051 N90.5 Menopausal symptom 19183 002 N95.1 Gynecologi c examination [id number] Z01.419 Suggested Calcium with Vitamin D 1200-1500m g daily. Patient advised to get an annual flu shot in the fall and she could obtain at [facility] or [facility] clinic. Also to obtain TDap vaccinatio n if you have not had one in the last 10 years. Recommend yearly mammograms . Encouraged monthly self breast exams. Encourage safe sexual practices, to use condoms and limit partners if not already in a monogamous relationsh ip. Engage in daily exercise of low impact aerobic exercise 45-60 minutes 4-5 times weekly. Avoid tobacco and illicit drugs as well as using moderation with alcohol intake less than 1-2 8 oz beverages daily. This lifestyle behavior pattern will lead to less health conditions and longer life span. If BMI greater than 25 weight watchers or dietary consult advised. All questions have been answered. Patient appears to understand informatio n, but if you have any questions please call or respond to this email. WWEpostmen opausalon combipatch for management of hot flashes/ni ght sweats. This has significan tly improved her symptoms. States she feels so much better since starting this, wants to continue. R/B of HRT discussed and accepted by patient. She declines any contraindi cations to HRT. Refills sent x 12 months.vag inal dryness with IC, irritation . Has tried OTC lubricatio n and creams with no relief. Recommende d crisco/ever onut oil/extra virgin olive oil to vulva twice daily - use this as lubricatio n with IC. Patient declines these options at this time. We discussed vaginal estrogen cream. R/B discussed. Rx sent, use 2-3 times per week at bedtime. F/u for med check in 6 weeks.last pap 06/2021 - NILM, HPV (+)pap updatedsti testing declinedma mmogram order givenUTD with colonoscop yUTD with PCPRTC in 6 weeks for med check We discussed Menopausal Hormone therapy (MHT) for women with intact uterus with the goals of reliving vaso-motor sx's using estrogen/p rogestin therapy (EPT) using lowest doses for shortest duration in women 40-59yo. Contraindi cations include: Hx of DVT or thrombolic events, High cholestero l, Hx of breast cancer, known CHD, active liver disease, unexplaine d vag bleeding, high risk endometria l cancer, TIA. Side effects can include but are not limited to: Irregular vag bleeding,, breast tenderness , nausea, weight changes, libido changes, nausea. Adverse Rxn: Elevated BP migraine w/ visual changes, breast cancer dx, WA/stroke, DVT/PE, Endometria l cancer. Please contact office with any new or worsening side effects or adverse reactions. Or if a medical emergency please go to nearest ED/Urgency care for further evaluation . Time spent in visit is a total of 35 mins with at least 50% of visit consisting of counseling and review of plan of care. Screening for malignant neoplasm of breast 710185502 Z12.39 Dyspareunia 31175743 N94 .10 [id number] CHUCK Cano [place] [address],[place] [address] 10/09/2022 12:04:50 10/09/2022 13:45:31 Urinary symptoms 940724246 R39.9 urine cx sentencour aged to increase water intake, decrease caffeinewi ll update patient with results when availablet o notify the office with concerns or worsening symptoms Time spent in visit is a total of 18 mins with at least 50% of visit consisting of counseling and review of plan of care. Abnormal urine odor 8769 003 R82.90 [id number] CHUCK Cano [place] [address],[place] [address] 07/02/2023 09:48:39 07/02/2023 10:33:48 Gynecologic examination 96030907 Z01.419 WWEpostmen opausalpap updateddec lined STI screenmamm ogram UTDcologua rd UTD, due next 2024routin e labs UTD/PCPRTC in 1 yr or sooner if needed Take Calcium with Vitamin D daily. Do monthly self breast exams. It is advised to get annual flu shot in the fall and she could obtain at [facility] or [facility] take care clinic. If you haven't received the Tdap vaccine in the last 10 years you should obtain one as well. Have mammogram yearly, bone density every 2-3 years and stay UTD on colon CA screening. Engage in regular exercise. Avoid tobacco and illicit drugs. This lifestyle behavior pattern will lead to less health conditions and longer life span. If BMI greater than 25 dietary consult advised. Questions have been answered. Patient appears to understand instructio ns, but if you have any further questions call or respond to this email [id number] CHUCK Cano [place] [address] [address] 07/07/2024 10:05:43 07/07/2024 13:35:12 Gynecologic examination 71150450 Z01.419 WWEPap - done todaySTI screen - vaginitis/ STI panel sentMammog braxton - order givenColon cancer screening - updated cologuard orderedDex a - n/aRoutine labs - PCPRTC in 1 yr or sooner if needed Do monthly self breast exams.It is advised to get annual flu shot in the fall and she could obtain at local pharmacy. If you haven't received the Tdap vaccine in the last 10 years you should obtain one as well.Have mammogram yearly, bone density every 2-3 years and stay up to date on colon cancer screening. Engage in regular exercise. Avoid tobacco and illicit drugs. This lifestyle behavior pattern will lead to less health conditions and longer life span. If BMI greater than 25 dietary consult advised.Qu estions have been answered. Screening mammography 24 295536 Z12.31 Vaginal odor 152219467 N 89.8 vaginitis/ STI panel sentvulvar care guidelines discussed Health Concerns Section Related Observation LastModified by Organization Detai ls LastModified Time None Recorded Concern Status LastModified by Organization Details LastModified Time None Recorded Advance Directives Directive None Recorded Payers Insurance Date Sequence Insurance Name Policy Number Policy Barrios Covered Member ID Barrios Member ID Guarantor Name 07/07/2024 1 [facility] (MEDICAID HMO) [id number] Wu [id number] Wu Itz Notes Date Note Type Note Provider Name and Address Organization Details Recorded Time 09/01/2021 text/html Here today for medication check. CHUCK Kwon- [address], [place], [address], [facility] 09/01/2021 10:08:16 06/26/2022 text/html Annual Applications System Analyst Post-MenopausalRep orted bypatient.Menopaus al Symptoms:no menopausal symptoms; normal vaginal lubrication Vaginal Bleeding:history of menopause having occurred; no history of post menopausal bleeding Urinary Symptoms:no hematuria; no incontinence; no nocturia; no urinary frequency Vulva:no genital lesion; no vulvar atrophy Vagina:normal vaginal discharge; no vaginal atrophy Breast:no breast lump; no nipple discharge; no breast pain Sexual Complaints:no sexual complaints Psychological Symptoms:no depression; no anxiety Preventive Measures:encourage regular mammograms starting age 40; encourage self breast examination; encourage regular exercise; encourage no tobacco use; needs to schedule mammogram; history of recent colonoscopy CHUCK Cano [address], [place], [address], [facility] 06/26/2022 11:39:14 10/09/2022 text/html 52yopresents for evaluation of strong urine odornoticed a few days agodenies flank pains, urinary burning, urinary frequency, or pelvic painshe states she has not been drinking enough water latelyneg vaginal symptomsneg n/v/f CHUCK Cano [address], [place], [address], [facility] 10/09/2022 13:44:26 07/02/2023 text/html Annual Applications System Analyst Post-MenopausalRep orted bypatient.Menopaus al Symptoms:no menopausal symptoms; normal vaginal lubrication Vaginal Bleeding:history of menopause having occurred; no history of post menopausal bleeding Urinary Symptoms:no hematuria; no incontinence; no nocturia; no urinary frequency Vulva:no genital lesion; no vulvar atrophy Vagina:normal vaginal discharge; no vaginal atrophy Breast:no breast lump; no nipple discharge; no breast pain Sexual Complaints:no sexual complaints Psychological Symptoms:no depression; no anxiety Preventive Measures:encourage regular mammograms starting age 40; encourage self breast examination; encourage regular exercise; encourage no tobacco use; mammogram performed within the past yearNotes:53yoWWEp ostmenopausallast pap 06/2022: nilm, HPV (-)06/2021: nilm, HPV (+)mammogram UTD, ologuard done 2021UTD with PCP CHUCK Cano [address], [place], [address], [facility] 07/02/2023 10:31:04 07/07/2024 text/html Annual Applications System Analyst Post-MenopausalRep orted bypatient.Menopaus al Symptoms:no menopausal symptoms; normal vaginal lubrication Vaginal Bleeding:history of menopause having occurred; no history of post menopausal bleeding Urinary Symptoms:no hematuria; no incontinence; no nocturia; no urinary frequency Vulva:no genital lesion; no vulvar atrophy Vagina:no vaginal atrophy;foul-smell ing Breast:no breast lump; no nipple discharge; no breast pain Sexual Complaints:no sexual complaints Psychological Symptoms:no depression; no anxiety Preventive Measures:encourage regular mammograms starting age 40; encourage self breast examination; encourage regular exerciseNotes:54yo wwelast pap 2023 : nilm, HPV (-)h/o HPV (+) 2021mammogram last 1-2 yrs agocologuard done 2021 vaginal odor at times CHUCK Cano [address], [place], [address], [facility] 07/07/2024 13:15:06 OBGyn Episode Ob Episode Information Episode Created Date Number of Fetuses Patient Bloodtype Patient rh Status Prepregnancy Weight lbs Domestic Partner Domestic Partner Phone Father Name Olive Grader Status 06/18/19 20 1 CLOSED Fetus Data First Name Last Name Admitted to NICU Weight (g) Sex Living Outcome Pediatric Complications Fetus ID Race Codes Race Delivery Type 2267.96 F Full Term 1221 Vaginal Delivery Jose Calculation Initial Jose Date Initial Exam Date Initial Exam Provider Initial Ultrasound Date Last Menstrual Period Date Ultra Sound Weeks Gestation 0 Eighteen To Twenty Week Jose Update Ultra Sound Date Fundal Height At Umbil Quickening Date Ultra Sound Latest Weeks Gestation Final Jose Confirmed By Final Jose Confirmed Date Final Jose Date Ultra Sound Latest Days Gestation 0 0 Menstrual History Last Menstrual Date Menses Monthly On Bcp Conception Prior Menses Frequency Hcg Plus Date Menarche Onset Age Delivery Information Delivery Date Delivery Type Labor Anesthesia Weeks Gestation Incision Type Labor Labor Length Hrs Delivered By Post Complications Tubal Sterilization Discharge Date Comments 0 40 Discharge Information Feeding Method Contraceptive Method Maternal HG B and HCT Levels Ob Episode Information Episode Created Date Number of Fetuses Patient Bloodtype Patient rh Status Prepregnancy Weight lbs Domestic Partner Domestic Partner Phone Father Name Olive Grader Status 06/18/19 20 1 CLOSED Fetus Data First Name Last Name Admitted to NICU Weight (g) Sex Living Outcome Pediatric Complications Fetus ID Race Codes Race Delivery Type 2721.55 2 F Full Term 1222 Vaginal Delivery Jose Calculation Initial Jose Date Initial Exam Date Initial Exam Provider Initial Ultrasound Date Last Menstrual Period Date Ultra Sound Weeks Gestation 0 Eighteen To Twenty Week Jose Update Ultra Sound Date Fundal Height At Umbil Quickening Date Ultra Sound Latest Weeks Gestation Final Jose Confirmed By Final Jose Confirmed Date Final Jose Date Ultra Sound Latest Days Gestation 0 0 Menstrual History Last Menstrual Date Menses Monthly On Bcp Conception Prior Menses Frequency Hcg Plus Date Menarche Onset Age Delivery Information Delivery Date Delivery Type Labor Anesthesia Weeks Gestation Incision Type Labor Labor Length Hrs Delivered By Post Complications Tubal Sterilization Discharge Date Comments 5 40 Discharge Information Feeding Method Contraceptive Method Maternal HG B and HCT Levels
--- OUTSIDE RECORDS SUMMARY | 2024-07-23 13:00 | XMS_ITS | Clinical Summary ---
Author Organization [facility] Address [address] [place] [address] Care Team Providers Care Investments Manager Name Role Phone Tomasz York MD Primary Care Provider [phone] Source Comments [facility],non-owned Affiliates and Associated Physician Practices is amultiple site organization consisting of ambulatory clinics and hospital sitesin [place], [place], [place] and [place]. This disclosure is being madepursuant to the Care Everywhere program and may not contain all information available regarding this patient. Last updated 17.[facility] [employer] Allergies No known active allergies Medications * Be aware that medications may not be up to date on this document. Alwaysverify current medications with the patient. Cholecalciferol (VITAMIN D3 PO) Vitamin D3 Act joe estradiol (CLIMARA) 0.025 MG/24HR patch SUSANA 1 PA EXT TO THE SKIN Q WK 06/15/2019 Active Active Problems No known active problems Social History Tobacco Use Types Packs/Day Years Used Date Smoking Tobacco: Never Smokeless Tobacco: Never Alcohol Use Standard Drinks/Week Comments No 0 (1 standard drink = 0.6 oz pur e alcohol) Comments Unknown Sex and Gender Information Value Date Recorded Sex Assigned at Not on file Legal Sex Female 5:24 PM [employer]HROOM Gender Identity Not on file Sexual Orientation Not on file Last Filed Vital Signs Vital Sign Reading Time Taken Comments Blood Pressure 122/65 05/21/2014 8:00 PM CDT Pulse 73 05/21/2014 8:00 PM CDT Temperature 36.6 C (97.9 F) 05/21/2014 5:59 PM CDT Respiratory Rate 24 05/21/2014 5:59 PM CDT Oxygen Saturation 100% 05/21/2014 8:00 PM CDT Inhaled Oxygen Concentration - - Weight 88 kg (194 lb) 06/30/2019 9:21 AM CDT Height 170.2 cm (5' 7) 06/30/2019 9:21 AM CDT Body Mass Index 30.38 06/30/2019 9:21 AM CDT Plan of Treatment Health Maintenance Due Date Last Done Comments COLOGUARD (AGES 45-75) - COL ON CA SCREENING 1968 COLON MONITORING 1968 COLONOSCOPY - COLON CA SCREENING 1968 CT COLONOGRAPHY - COLON CA SCREENING 1970 Colorectal Cancer Screening 1970 FIT - COLON CA SCREENING 1968 FLEX SIG - COLON CA SCREENING 1968 LIPID TESTING 1970 MAMMOGRAM 1970 HIV SCREENING 02/28/1983 HEPATITIS C SCREENING 02/24/1986 DTAP/TDAP/TD VACCINES (1 - Tdap) 02/28/1987 HEPATITIS B VACCINE (1 of 3 - 19+ 3-dose series) 02/28/1987 PNEUMOCOCCAL VACCINE 50+ (1 of 1 - PCV) 02/28/2018 ZOSTER VACCINE (1 of 2) 02/28/2018 SCREENING FOR DIABETES 06/30/2019 COVID-19 VACCINE ( - 2023-2 5 season) 2023 DEPRESSION SCREENING 02/12/2024 INFLUENZA VACCINE (Season Ended) 2024 HIB VACCINE Aged Out No longer eligi ble based on patient's age to complete this topic HPV VACCINE Aged Out No longer eligi ble based on patient's age to complete this topic MENINGOCOCCAL (Group B) VACC INE SHARED DECISION-MAKING Aged Out No longer eligibl e based on patient's age to complete this topic MENINGOCOCCAL GROUPS A/C/Y/W VACCINE Aged Out No longer eligible b ased on patient's age to complete this topic Goals Goal Patient Goal Type Associated Problems Recent Progress Patient-Stated? Author Mobility General No Racheal Guillory, RN Note: Expected end date: 08/12/2019 The goal is to maintain or improve your mobility at the optimum level for you. Interventions: Insurance [facility] Care Teams Investments Manager Relationship Specialty Start Date End Date Tomasz York MD PCP - General 06/23/19
== END 2024-07-23 12:26 | disposition home or self-care (01) ==
LOC: ANHIMG 12:28
PROVIDERS: PCP Emergency Medicine; Visit Provider Nurse Practitioner
DX: Z12.31 Encounter for screening mammogram for malignant neoplasm of breast (principal)
CPT/HCPCS: 77063; 77067

== ENCOUNTER 2024-11-01 19:40 | Emergency (ER) | payer OTHER, SELFPAY ==
--- NOTE | ~2024-11-01 | XR_ITS ---
EXAMINATION: XR foot LT min 3V, 11/01/2024 19:54 CDT HISTORY: pain to left foot 2 weeks COMPARISON: No comparisons available. Findings: No acute fracture or malalignment. No significant degenerative changes. Soft tissues unremarkable. Impression: No acute fracture or malalignment. Reviewed, dictated and finalized at location A. Impression: No acute fracture or malalignment.
--- NOTE | 2024-11-01 19:42 | ED_ITS ---
HPI - General Adult General Chief complaint: Extremity Problem,Nontraumatic Stated complaint: left foot pain Time Seen by Provider: 11/01/24 19:42 Source: patient Mode of arrival: ambulatory Limitations: no limitations History of Present Illness HPI narrative: 54-year-old female patient presents to the [facility] with complaints of left foot pain for the past 2 weeks. Patient states she was helping a friend move 2 weeks ago does remember any specific injury at that time but since then has been having pain to the top of the foot. Patient states no pain when she is resting and she is able to walk on the foot and has been taking Tylenol for the pain. Related Data Home Medications ?Medication ?Instructions ?Recorded ?Confirmed ?Last Taken ?Type No Home Medications 05/27/23 11/01/24 U nknown History Allergies Allergy/AdvReac Type Severity Reaction Status Date / Time peanut Allergy Mild Cough Verified 11/01/24 19:44 Review of Systems Review of Systems: CONSTITUTIONAL: Denies fever, chills, or sweats. EYES: Denies visual changes, redness, or discharge. ENT: Denies rhinorrhea, congestion, sore throat, or otalgia. CARDIOVASCULAR: Denies chest pain, palpitations, or edema. RESPIRATORY: Denies cough or dyspnea. GASTROINTESTINAL: Denies abdominal pain, nausea, vomiting, or diarrhea. GENITOURINARY: Denies dysuria or hematuria. SKIN: Denies rash or itching. MUSCULOSKELETAL: Denies back pain, joint pain, or myalgia. Positive left foot pain x2 weeks NEUROLOGIC: Denies headache, numbness, or weakness. PSYCHIATRIC: Denies anxiety or depression. [facility] Past Medical History Medical History Left rotator cuff tear Left shoulder pain Surgical History Surgical History H/O tubal ligation 1995 Family History Family History Father Family history of malignant neoplasm, Onset Age: 63 Patient's father is Social History Social History Smoking status: Never smoker Alcohol intake: never Gender identity (if verbalized by the patient): Female Comments At the time of my signature I agree with nursing past medical history, surgical, social, and family history. There is no relevant family history pertinent to the presenting complaint. Exam Narrative: GENERAL: Well-appearing, well-nourished, and in no acute distress. HEAD: Normocephalic, atraumatic. EYES: PERRLA and EOMI. ENT: Nares clear, no rhinorrhea or epistaxis. Mucous membranes moist. NECK: Supple. No lymphadenopathy CHEST: Clear to auscultation. No respiratory distress. HEART: Regular rate and rhythm. No murmur heard. Normal peripheral pulses. ABDOMEN: Soft, nontender, nondistended, normal active bowel sounds. EXTREMITIES: Patient able to bear weight and ambulate without pain and denies any pain at rest. No surface trauma, ecchymosis, erythema, lesions, ulcers or break in skin integrity. The L foot is without obvious asymmetry or deformity when compared to the R foot. No bony step-off, tender to palpation over the midfoot, no pain over the toes, hindfoot or sole. Pain with plantar/dorsiflexion, inversion/eversion. Distal motor and neurovascular status are intact SKIN: Warm, dry, no rash. NEURO: No focal deficits. Alert and oriented x3. Course Course Level of Care: Express Care Visit Vital Signs Vital signs: Vital Signs Temperature 36.1 C L 11/01/24 19:49 Pulse Rate 82 11/01/24 19:49 Respiratory Rate 16 11/01/24 19:49 Blood Pressure 110/77 11/01/24 19:49 Pulse Oximetry 97 11/01/24 19:49 Oxygen Delivery Room Air 11/01/24 19:49 Temperature 36.1 C L 11/01/24 19:49 Pulse Rate 82 11/01/24 19:49 Respiratory Rate 16 11/01/24 19:49 Blood Pressure 110/77 11/01/24 19:49 Pulse Oximetry 97 11/01/24 19:49 Oxygen Delivery Room Air 11/01/24 19:49 Vital signs reviewed. Medical Decision Making MDM Narrative Medical decision making narrative: Plan of care patient is x-ray of the left foot to rule out fracture. I will reassess patient once this has resulted. Differential Diagnosis Differential Diagnosis: Differential diagnosis: Foot fracture, crush injury, compartment syndrome, contusion, sprain, tendinitis,lisfranc sprain or fracture, avulsion fracture, grown toenail, diabetic ulcer. Vital Signs Vital Signs: Vital Signs Temperature 36.1 C L 11/01/24 19:49 Pulse Rate 82 11/01/24 19:49 Respiratory Rate 16 11/01/24 19:49 Blood Pressure 110/77 11/01/24 19:49 Pulse Oximetry 97 11/01/24 19:49 Oxygen Delivery Room Air 11/01/24 19:49 Temperature 36.1 C L 11/01/24 19:49 Pulse Rate 82 11/01/24 19:49 Respiratory Rate 16 11/01/24 19:49 Blood Pressure 110/77 11/01/24 19:49 Pulse Oximetry 97 11/01/24 19:49 Oxygen Delivery Room Air 11/01/24 19:49 Imaging Data Radiologist's impression: [facility] [place] [address] [place] [address] XRay Report Signed Patient: Wu Mobley : 1970 MR#: [id number] Age: 54 Acct:[id number] Loc: [facility] ADM Date: 11/01/24Attending Dr: Ordering Physician: Tika Womack APRN Date of Service: 11/01/24 Procedure(s): XR foot LT min 3V Accession Number(s): [id number] cc: Tomasz York MD; Tika Womack APRN~ EXAMINATION: XR foot LT min 3V, 11/01/2024 19:54 CDT HISTORY: pain to left foot 2 weeks COMPARISON: No comparisons available. Findings: No acute fracture or malalignment. No significant degenerative changes. Soft tissues unremarkable. Impression: No acute fracture or malalignment. Reviewed, dictated and finalized at location A. Critical Care Time Critical Care Time Critical Care Time: No Discharge Plan Discharge Clinical Impression: Sprain of foot, left Patient Disposition: Home Condition: Stable Instructions: Antibiotic Form Additional Instructions: Ice to the area 20-30 minutes 4-6 times a day Elevate above heart Elastic wrap or orthopedic splint as directed for comfort for the next 5-7 days Tylenol for lesser pain Ibuprofen regularly for the next 2-3 days for the inflammation Follow up with your primary care provider if the condition is not improving within 1 week or sooner if the Condition worsens with numbness, tingling, decrease sensation with weakness to seek ER. Patient Language: Niuean Prescriptions: No Action No Home Medications Follow-up/Referrals: Tomasz York MD [Primary Care Provider, [facility]] Time of Disposition: 20:06
[2024-11-01 19:49] VITALS: BP 110/77; PULSE 82; RESP 16; TEMP 36.1; O2SAT 97
== END 2024-11-01 20:09 | disposition home or self-care (01) ==
PROVIDERS: Emergency Provider Nurse Practitioner Family; PCP Emergency Medicine
DX: S93.602A Unspecified sprain of left foot, initial encounter (principal); X58.XXXA Exposure to other specified factors, initial encounter
CPT/HCPCS: 73630; 99213; G0463